=== PATIENT | female | born 1940 | race Caucasian/White ===

== ENCOUNTER 2022-01-17 17:10 | Inpatient (IN) ==
--- NOTE | 2022-01-17 17:19 | ED Triage Note ---
Date of Service January 17, 2022 History of Present Illness This patient was briefly evaluated while in triage. An abbreviated physical exam was performed. This patient is a 81-year-old Female with past medical history of colitis with concerns of L sided neck swelling. No fever. She had neck CT today, showing abscess. Physical Exam GENERAL: 81 year old female. In no acute distress. SKIN: No lesions or rashes. L sided facial edema and erythema noted. HEART: Regular rate and rhythm. LUNGS: Clear to auscultation. NEURO: Alert and oriented. No deficits. MUSCULOSKELETAL: No deformities to inspection of the extremities. PSYCH: Patient is pleasant and answers all questions appropriately. Initial orders for labs and / or imaging were placed and patient was placed in the waiting area until a bed is available. Please see further documentation for the full ED course.
[2022-01-17 17:44] LABS: Basophils # (auto) 0.15 K/uL (0-0.2); Basophils % (auto) 0.6 %; Eosinophils # (auto) 0.08 K/uL (0-0.50); Eosinophils % (auto) 0.3 %; Hematocrit (blood only) 34.2 % (34.1-44.9); Hemoglobin 11.2 g/dl (12.0-16.0); Immature Granulocytes # (auto) 0.72 K/uL (0.00-0.02); Lymphocytes # (auto) 2.04 K/uL (1.2-3.4); Lymphocytes % (auto) 8.6 %; Mean Corpuscular Hgb Conc 32.7 g/dL (32.0-36.0); Mean Platelet Volume 9.8 fL (9.4-12.3); Monocytes # (auto) 2.16 K/uL (0.24-0.82); Monocytes % (auto) 9.1 %; Neutrophils % (auto) 78.4 %; Platelet Count 181 K/uL (130-400); RDW Coefficient of Variation 16.7 % (11.5-14.5); RDW Standard Deviation 64.4 fL (36.4-46.3); Red Blood Count 3.29 M/uL (3.93-5.22); White Blood Count 23.85 K/ul (4.8-10.8)
[2022-01-17 18:14] LABS: Albumin Globulin Ratio 1.5 (0.9-2); Albumin Level 3.8 gm/dl (3.4-5.0); BUN Creatinine Ratio 15.7 (10-20); Bilirubin,Total 0.3 mg/dl (0.2-1.0); Calcium 8.2 mg/dl (8.5-10.1); Creatinine Clr Calc Pharmacy 45.6 ml/min; Est GFR (African American) 76.6 ml/min; Est GFR (Non-African American) 66.1 ml/min; Globulin 2.6 gm/dl (2.5-4.0); Potassium 3.4 mmol/L (3.5-5.1); Total Protein 6.4 gm/dl (6.0-8.3)
--- NOTE | 2022-01-17 18:52 | Emergency Department Note ---
History of Present Illness General Chief complaint: Throat Pain Stated complaint: ABCESS GLAND ON THROAT Time Seen by Provider: 01/17/22 18:39 History of Present Illness Maximum Pain Intensity: 8 This is an 81-year-old female that presents to the emergency department via private vehicle referred by PCP over concerns of left-sided neck swelling/infection. The patient was initially evaluated in triage. Labs were drawn. CT imaging was also reviewed that was obtained earlier today. This was of the neck. Patient notes that yesterday she noted some left-sided neck swelling. She notes it is tender to the touch. She denies any pain at rest without touching the area. She denies any fevers or chills. No trouble breathing or swallowing. Patient denies any recent antibiotic use. Patient notes a history of pancreatic cancer, currently undergoing treatment. Patient notes that she has had diarrhea recently secondary to this. Patient notes a history of penicillin allergy as a child but this did not cause anaphylaxis or oral swelling/breathing trouble. Home Medications Medication Instructions Recorded Confirmed Type ascorbic acid (vitamin C) 500 mg 500 mg PO DAILY #7 caps 05/11/21 01/17/22 Rx capsule aspirin 81 mg capsule 81 mg PO DAILY #30 caps 05/11/21 01/17/22 Rx cholecalciferol (vitamin D3) 50 50 mcg PO DAILY #30 caps 05/11/21 01/17/22 Rx mcg (2,000 unit) capsule cyanocobalamin (vitamin B-12) 1,000 mcg PO DAILY #30 caps 05/11/21 01/17/22 Rx 1,000 mcg capsule melatonin 10 mg capsule 10 mg PO HS PRN sleep #1 cap 05/11/21 01/17/22 Rx olmesartan 20 mg tablet 20 mg PO DAILY #30 tabs 05/11/21 01/17/22 Rx rosuvastatin 10 mg tablet 10 mg PO DAILY #30 tabs 05/11/21 01/17/22 Rx famotidine 20 mg tablet 20 mg PO BID #30 tabs 10/02/21 01/17/22 Rx ondansetron 4 mg disintegrating 4 mg PO Q8H PRN nausea and 10/17/21 01/17/22 Rx tablet vomiting #30 tabs biotin 1 mg capsule 1 mg PO DAILY 11/30/21 01/17/22 History loperamide 2 mg capsule 2 mg PO Q6H PRN Diarrhea 11/30/21 01/17/22 History lubiprostone 24 mcg capsule 24 mcg PO BID #180 caps 12/13/21 01/17/22 Rx (Amitiza) dicyclomine 10 mg capsule 10 mg PO QID PRN abdominal 12/18/21 01/17/22 Rx discomfort #60 caps balsalazide 750 mg capsule 2,250 mg PO TID #540 caps 01/11/22 01/17/22 Rx cyclosporine 0.05 % eye drops in a 1 drp OPB BID 01/17/22 01/17/22 History dropperette (Restasis) diphenoxylate-atropine 2.5 1 tab PO TID 01/17/22 01/17/22 History mg-0.025 mg tablet polyethylene glycol 3350 8.5 gram 8.5 g PO DAILY PRN Constipation 01/17/22 01/17/22 History oral powder packet potassium chloride 10 mEq 10 meq PO DAILY 01/17/22 01/17/22 History tablet,extended release Allergies Allergy/AdvReac Type Severity Reaction Status Date / Time Penicillins Allergy Intermediate swelling Verified 01/17/22 21:48 Past Med/Surg History Medical History (Updated 01/17/22 @ 19:49 by Piter Rhodes MD) COVID-19 Pancreatic cancer Ulcerative colitis Surgical History H/O bilateral cataract extraction H/O: hysterectomy 1990 Family History Mother Brain tumor Father Metastatic cancer Sister Ovarian cancer Denies family history of Prostate cancer Breast cancer Lung cancer Colorectal cancer Social History Smoking Status: Never smoker Second Hand Exposure: No; Hx Alcohol Use: No Hx Substance Use: No Preferred Language: Somali Communication Ability: Effective Visual Impairment: Limited Hearing Ability: Normal Hospice Care Sales Consultant Required: No marital status: / Current Living Situation: Personal Care Facility Current Living Situation Comment: lives in [place] current occupational status: retired Feels Safe at Home: Yes Childhood Exposure to Second-Hand Smoke: Yes caffeine: Yes Dental Care, Regularly: Yes Physical Activity Frequency: Does not Exercise Seatbelt Use: always Sunscreen Use: Yes Review of Systems A total of 10 systems reviewed and were otherwise negative Physical Exam Vital Signs Vital Signs - 24 hr 01/17/22 17:15 Temperature 36.9 C Temperature Source Temporal Artery Scan Pulse Rate 93 H Respiratory Rate 18 Respiratory Effort / Characteristics Non-Labored Respiratory Depth Normal Blood Pressure 142/69 H Blood Pressure Mean 93 Blood Pressure Position Sitting Pulse Oximetry 97 Oxygen Delivery Method Room Air Sepsis Recent Fever Within 48 Hours No Sepsis New/Unexplained Change in Mental Status No Sepsis Action Taken by Nursing No Action Required VITAL SIGNS - Vital signs and nursing notes were reviewed. Stable and afebrile. GENERAL - 81-year-old female appearing her stated age who is in no acute distress. Communicates well with provider and answers questions appropriately. SKIN -there is left-sided neck erythema and edema focal overlying the parotid gland that tracks into the submandibular/submental region with erythema. HEAD - NC/AT. EYES - Sclera anicteric. EARS - No deformities of external structures noted on gross examination bilaterally. No pain elicited with palpation of the tragus bilaterally. External auditory canals without discharge or otorrhea. Tympanic membranes pearly roe without retraction or bulging. No fluid or purulent material visualized behind the TM. Handle of malleus, umbo, cone of light, pars tensa/flaccid all easily visualized. NOSE - Midline and without cyanosis. No epistaxis or purulent drainage noted. MOUTH/OROPHARYNX - Without perioral cyanosis. Buccal mucosa pink and moist and without leukoplakia. Tongue midline with equal elevation of palate bilaterally. No tonsillar hypertrophy, erythema, or exudates noted. No drooling, stridor, trismus, wheezing or tripoding. Normal phonation. NECK - Neck with FROM. Skin as above. Left-sided neck edema noted that is focal just inferior to the left ear that tracks into the submandibular and submental regions. LUNGS - Chest wall symmetric without accessory muscle use, intercostals retractions, or central cyanosis. Normal vesicular breath sounds CTA B/L. No wheezes, rales, or rhonchi appreciated. CARDIAC - RRR EXTREMITIES - No clubbing or peripheral cyanosis. +5/5 strength noted in UE/LE bilaterally. NEUROLOGIC - Cranial nerves II through XII grossly intact. PSYCH - A&Ox3 and cooperates fully with examiner. Pt is very pleasant and interacts well with examiner. Course Administered Medications Famotidine (Famotidine 20 Mg Tab) 20 mg PO BID SKY Stop: 02/16/22 23:39 Last Admin: 01/18/22 00:14 Dose: 20 mg Documented By: KAREN Metronidazole (Flagyl) 500 mg in 100 mls @ 100 mls/hr IV Q8H SKY Stop: 01/27/22 22:59 Last Admin: 01/18/22 00:14 Dose: 100 mls/hr Documented By: KAREN Sodium Chloride (Nss 1000ml) 1,000 mls @ 125 mls/hr IV .Q8H SKY Stop: 01/18/22 15:44 Last Admin: 01/18/22 00:13 Dose: 125 mls/hr Documented By: KAREN Mercedes (Order Awaiting Action: Balsalazide 750 Mg Capsule) 1 each N/A QS SKY Stop: 02/17/22 00:00 Last Admin: 01/18/22 00:18 Dose: Not Given Documented By: KAREN Mercedes (Order Awaiting Action: Cyclosporine [Restasis] 0.05 % Dropperette) 1 each N/A QS SKY Stop: 02/17/22 00:00 Last Admin: 01/18/22 00:18 Dose: Not Given Documented By: KAREN Discontinued Medications Acetaminophen (Acetaminophen 500 Mg Tab) 500 mg PO NOW STA Stop: 01/17/22 19:24 Last Admin: 01/17/22 19:44 Dose: Not Given Documented By: SARAH Sodium Chloride (Nss) 500 mls @ 100 mls/hr IV .Q5H SKY Stop: 02/16/22 18:59 Last Admin: 01/17/22 19:29 Dose: 100 mls/hr Documented By: SARAH Ceftriaxone Sodium (Rocephin) 2,000 mg in 70 mls @ 140 mls/hr IV NOW STA Stop: 01/17/22 19:30 Last Infusion: 01/17/22 20:34 Dose: 0 mls/hr Documented By: Admin: 01/17/22 19:36 Dose: 140 mls/hr Documented By: SARAH Methylprednisolone 100 mg/ (Syringe) 2.6 mls @ 1.5 mls/min IV NOW STA Stop: 01/17/22 19:04 Last Admin: 01/17/22 19:31 Dose: 1.5 mls/min Documented By: SARAH Sodium Chloride (Nss 1000ml) 1,000 mls @ 999 mls/hr IV .Q1H1M ONE Stop: 01/17/22 20:34 Last Infusion: 01/17/22 20:34 Dose: 0 mls/hr Documented By: Admin: 01/17/22 19:37 Dose: 999 mls/hr Documented By: SARAH Methylprednisolone (Methylprednisolone 125 Mg/2 Ml Vial) Confirm Administered Dose 125 mg .ROUTE .STK-MED ONE Stop: 01/17/22 19:09 Last Admin: 01/17/22 19:30 Dose: Not Given Documented By: SARAH Medical Decision Making Laboratory Data Result diagrams: 01/17/22 17:29 01/17/22 17:29 Lab Results 01/17/22 01/17/22 01/17/22 Range/Units 17:29 17:29 17:29 WBC 23.85 H (4.8-10.8) K/ul RBC 3.29 L (3.93-5.22) M/uL Hgb 11.2 L (12.0-16.0) g/dl Hct 34.2 (34.1-44.9) % MCV 104.0 H (80.0-100.0) fL MCH 34.0 (25.0-34.0) pg MCHC 32.7 (32.0-36.0) g/dL RDW Std Deviation 64.4 H (36.4-46.3) fL RDW Coeff of Venessa 16.7 H (11.5-14.5) % Plt Count 181 (130-400) K/uL MPV 9.8 (9.4-12.3) fL Immature Gran % (Auto) 3.0 % Neut % (Auto) 78.4 % Lymph % (Auto) 8.6 % [place] % (Auto) 9.1 % Eos % (Auto) 0.3 % Baso % (Auto) 0.6 % Neut # (Auto) 18.70 H (1.4-6.5) K/uL Lymph # (Auto) 2.04 (1.2-3.4) K/uL [place] # (Auto) 2.16 H (0.24-0.82) K/uL Eos # (Auto) 0.08 (0-0.50) K/uL Baso # (Auto) 0.15 (0-0.2) K/uL Immature Gran # (Auto) 0.72 H (0.00-0.02) K/uL Sodium (136-145) mmol/L Potassium (3.5-5.1) mmol/L Chloride (98-107) mmol/L Carbon Dioxide (21-32) mmol/L Anion Gap (3-11) BUN (6-23) mg/dl Creatinine (0.6-1.2) mg/dl Est Cr Clr Drug Dosing ml/min Est GFR ( Amer) ml/min Est GFR (Non-Af Amer) ml/min BUN/Creatinine Ratio (10-20) Glucose (70-99(Fasting)) mg/dl Lactate 1.0 (0.4-2.0) mmol/L Calcium (8.5-10.1) mg/dl Total Bilirubin (0.2-1.0) mg/dl AST (13-39) U/L ALT (7-52) U/L Alkaline Phosphatase (34-104) U/L Total Protein (6.0-8.3) gm/dl Albumin (3.4-5.0) gm/dl Globulin (2.5-4.0) gm/dl Albumin/Globulin Ratio (0.9-2) Procalcitonin 0.51 H (0-0.5) ng/ml SARS-CoV-2, RNA, NAAT (NEGATIVE) 01/17/22 01/17/22 Range/Units 17:29 17:29 WBC (4.8-10.8) K/ul RBC (3.93-5.22) M/uL Hgb (12.0-16.0) g/dl Hct (34.1-44.9) % MCV (80.0-100.0) fL MCH (25.0-34.0) pg MCHC (32.0-36.0) g/dL RDW Std Deviation (36.4-46.3) fL RDW Coeff of Venessa (11.5-14.5) % Plt Count (130-400) K/uL MPV (9.4-12.3) fL Immature Gran % (Auto) % Neut % (Auto) % Lymph % (Auto) % [place] % (Auto) % Eos % (Auto) % Baso % (Auto) % Neut # (Auto) (1.4-6.5) K/uL Lymph # (Auto) (1.2-3.4) K/uL [place] # (Auto) (0.24-0.82) K/uL Eos # (Auto) (0-0.50) K/uL Baso # (Auto) (0-0.2) K/uL Immature Gran # (Auto) (0.00-0.02) K/uL Sodium 136 (136-145) mmol/L Potassium 3.4 L (3.5-5.1) mmol/L Chloride 103 (98-107) mmol/L Carbon Dioxide 24 (21-32) mmol/L Anion Gap 9 (3-11) BUN 13 (6-23) mg/dl Creatinine 0.83 (0.6-1.2) mg/dl Est Cr Clr Drug Dosing 45.6 ml/min Est GFR ( Amer) 76.6 ml/min Est GFR (Non-Af Amer) 66.1 ml/min BUN/Creatinine Ratio 15.7 (10-20) Glucose 101 H (70-99(Fasting)) mg/dl Lactate (0.4-2.0) mmol/L Calcium 8.2 L (8.5-10.1) mg/dl Total Bilirubin 0.3 (0.2-1.0) mg/dl AST 16 (13-39) U/L ALT 7 (7-52) U/L Alkaline Phosphatase 139 H (34-104) U/L Total Protein 6.4 (6.0-8.3) gm/dl Albumin 3.8 (3.4-5.0) gm/dl Globulin 2.6 (2.5-4.0) gm/dl Albumin/Globulin Ratio 1.5 (0.9-2) Procalcitonin (0-0.5) ng/ml SARS-CoV-2, RNA, NAAT NEGATIVE (NEGATIVE) Imaging Data Radiologist's Impression: ORDERED OUT PATIENT: CT soft tissue neck w con CLINICAL HISTORY: R22.1 - Localized swelling, mass and lump, neck . Pain and swelling of the left side of the face.. COMPARISON STUDY: No previous studies for comparison. CT DOSE: 378.01 mGy.cm TECHNIQUE: Standard CT of the Neck was performed with IV contrast. A dose lowering technique was utilized adhering to the principles of ALARA. Contrast Volume: Optiray 320, 94 ml FINDINGS: Salivary glands: There is localized swelling of the left parotid gland with an enhancing walled off fluid collection seen within the gland measuring approximately 2.1 x 1.6 cm. This is most characteristic of a small abscess. Edema is present of the soft tissues surrounding the left parotid gland as well. The right parotid gland is within normal limits. The submandibular glands are also symmetric and within normal limits. The thyroid gland is also within normal limits. Lymph nodes: There are minimal reactive lymph nodes seen along the cervical lymph node chain on the left. There is no evidence for soft tissue mass within the neck bilaterally. Airway: The cervical airway is widely patent. The epiglottis and aryepiglottic folds are normal bilaterally. The vocal cords are symmetric bilaterally. Vascular structures: No gross vascular abnormalities are seen. Paranasal sinuses: The imaged paranasal sinuses are clear. Osseous structures: No acute osseous abnormalities are identified. Degenerative changes are seen within the spine. Teeth: There is no definite evidence for dental abscess. IMPRESSION: 1. Asymmetric swelling of the left parotid gland with a enhancing walled off fluid collection within the gland most characteristic of an abscess. 2. Mild soft tissue swelling is also seen within the left side of face. 3. There is also minimal reactive lymphadenopathy along the cervical lymph node chain on the left. This report will be called/faxed to the referring clinician. ACT 112: Negative or not required by law. Electronically signed by: Sanjay Mcwilliams M.D. 01/17/2022 1:42 PM [facility] Narrative Patient was seen and evaluated as above in room A02. Review was performed of nursing notes and vital signs. I did review pertinent previous visits and patient history. After obtaining a thorough history and physical examination the above work up was performed. Patient presents to us today for evaluation of left-sided neck pain and swelling. She clinically appears well and nontoxic. No evidence of airway compromise. Patient had the CT scan of the neck performed as an outpatient earlier today. Patient was then directed here after the results were obtained. On arrival the patient does have erythema and edema to the left side of the neck just inferior to the left ear region. This is likely parotid in origin but also with edema and erythema tracking to the submandibular and submental region. Options of care were discussed with the patient. She clinically appears very well. Labs reveal significant leukocytosis 23.85. Anemia is noted with hemoglobin of 11.2. Hypokalemia 3.4. Pro-Elroy elevated at 0.51. COVID test negative. I discussed the presentation with the attending physician as well as the on-call ENT surgeon, Dr. Dangelo. We reviewed the presentation and findings. Recommendation was for IV antibiotics such as IV Rocephin, 100 mg of IV Solu- Medrol, IV hydration. At this time patient is not felt to be surgical upon discussion of case with ENT. Patient will be admitted to the medicine service for further evaluation and management. I do not believe that she requires intubation or airway management at the present time. I discussed benefit versus risk of the cephalosporin antibiotic with the patient. At this time it is felt that the benefit outweighs the risk. Patient in agreement. I then discussed the case with the hospitalist. Please refer to further documentation regarding h er stay. In the evaluation and treatment of this patient the following differential diagnoses were entertained: Strep pharyngitis, viral pharyngitis, allergic rhinitis with post nasal drip, airway obstruction, head/neck neoplasias, GERD, peritonisllar abscess, epiglottitis, [id number]-[id number]-mouth disease, herpes simplex, mononucleosis, pneumonia, retropharyngeal abscess, scarlet fever, among others. Impression & Plan Neck infection Discharge Plan Visit Data Chief Complaint: Throat Pain Stated Complaint: ABCESS GLAND ON THROAT ED Provider: [facility] ED Midlevel Provider: Henry Chaudhary Discharge Problem: Neck infection Patient Disposition: Admitted As Inpatient Condition: Good Discharge Instructions Interventions: ED Discharge Assessment Last Done: 01/17/22 21:35
[2022-01-17] MEDS ORDERED: SODIUM CHLORIDE 0.9% 500 ML IV SCH (19:00)
[2022-01-17] MEDS ORDERED: cefTRIAXone SODIUM 2,000 MG/70 ML BAG IV STA (19:01)
[2022-01-17] MEDS ORDERED: METHYLPREDNISOLONE IV STA (19:03)
[2022-01-17] MEDS ORDERED: methylPREDNISolone 125 MG/2 ML VIAL ONE (19:08)
[2022-01-17] MEDS ORDERED: ACETAMINOPHEN 500 MG TAB PO STA (19:23)
[2022-01-17] MEDS ORDERED: SODIUM CHLORIDE 0.9% 1000ML 1,000 ML IV ONE (19:34)
--- NOTE | 2022-01-17 19:36 | History & Physical Report ---
Date of Service January 17, 2022 Assessment & Plan (1) Parotid abscess: Plan: Continue IV ceftriaxone and metronidazole. 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 - last had chemotherapy January 02 (5) Vitamin B12 deficiency: Plan: Continue cyanocobalamin (6) Vitamin D deficiency: Plan: Continue vitamin D supplementation (7) Hypertension: Plan: Continue olmesartan 20mg PO daily (8) Hyperlipidemia: Plan: Continue rosuvastatin 10mg PO daily Plan VTE Prophyalxis - deferred pending surgical consult Diet - NPO except ice chips and meds Disposition - observation status to med/surg History of Present Illness Chief Complaint: Left facial swelling Primary Care Provider: Alfredo Hernandez DO Gaye Imelda is an 81 year old female who presents to the ER with left facial swelling. She reports first noticing pain on the left side of her face while sleeping last night. This morning it was more swollen and painful. Saw her PA in PCP office and organized a CT neck soft tissue which showed a parotid abscess and she was referred to the ER. No fever or chills. No difficulty breathing but pain on trying to open her mouth. She reports increased diarrhea with her latest chemotherapy which has been making her more dehydrated than usual. She reports a penicillin allergy that she reports was a rash in childhood. Allergies Allergy/AdvReac Type Severity Reaction Status Date / Time Penicillins Allergy Intermediate swelling Verified 01/17/22 21:48 Home Medications Medication Instructions Recorded Confirmed Type ascorbic acid (vitamin C) 500 mg 500 mg PO DAILY #7 caps 05/11/21 01/17/22 Rx capsule aspirin 81 mg capsule 81 mg PO DAILY #30 caps 05/11/21 01/17/22 Rx cholecalciferol (vitamin D3) 50 50 mcg PO DAILY #30 caps 05/11/21 01/17/22 Rx mcg (2,000 unit) capsule cyanocobalamin (vitamin B-12) 1,000 mcg PO DAILY #30 caps 05/11/21 01/17/22 Rx 1,000 mcg capsule melatonin 10 mg capsule 10 mg PO HS PRN sleep #1 cap 05/11/21 01/17/22 Rx olmesartan 20 mg tablet 20 mg PO DAILY #30 tabs 05/11/21 01/17/22 Rx rosuvastatin 10 mg tablet 10 mg PO DAILY #30 tabs 05/11/21 01/17/22 Rx famotidine 20 mg tablet 20 mg PO BID #30 tabs 10/02/21 01/17/22 Rx ondansetron 4 mg disintegrating 4 mg PO Q8H PRN nausea and 10/17/21 01/17/22 Rx tablet vomiting #30 tabs biotin 1 mg capsule 1 mg PO DAILY 11/30/21 01/17/22 History loperamide 2 mg capsule 2 mg PO Q6H PRN Diarrhea 11/30/21 01/17/22 History lubiprostone 24 mcg capsule 24 mcg PO BID #180 caps 12/13/21 01/17/22 Rx (Amitiza) dicyclomine 10 mg capsule 10 mg PO QID PRN abdominal 12/18/21 01/17/22 Rx discomfort #60 caps balsalazide 750 mg capsule 2,250 mg PO TID #540 caps 01/11/22 01/17/22 Rx cyclosporine 0.05 % eye drops in a 1 drp OPB BID 01/17/22 01/17/22 History dropperette (Restasis) diphenoxylate-atropine 2.5 1 tab PO TID 01/17/22 01/17/22 History mg-0.025 mg tablet polyethylene glycol 3350 8.5 gram 8.5 g PO DAILY PRN Constipation 01/17/22 01/17/22 History oral powder packet potassium chloride 10 mEq 10 meq PO DAILY 01/17/22 01/17/22 History tablet,extended release Past Med/Surg History Medical History (Updated 01/18/22 @ 07:13 by Piter Rhodes MD) COVID-19 Pancreatic cancer Ulcerative colitis Surgical History H/O bilateral cataract extraction H/O: hysterectomy 1990 Family History Mother Brain tumor Father Metastatic cancer Sister Ovarian cancer Denies family history of Prostate cancer Breast cancer Lung cancer Colorectal cancer Social History Smoking Status: Never smoker Second Hand Exposure: No; Do You Dip or Chew Tobacco: No; Tobacco Cessation Education Requested by Patient: No Hx Alcohol Use: Yes Alcohol type: wine Hx Substance Use: No Preferred Language: Tajik Communication Ability: Effective Visual Impairment: Limited Hearing Ability: Normal Bronc Breaker Required: No Beliefs That Will Affect Care: None marital status: / Current Living Situation: Alone Current Living Situation Comment: lives in [place] current occupational status: retired Other Information That Helps Us Care for You: No Feels Safe at Home: Yes Safety Concerns: Feels Safe At This Time Childhood Exposure to Second-Hand Smoke: Yes caffeine: Yes Dental Care, Regularly: Yes Physical Activity Frequency: Does not Exercise Seatbelt Use: always Sunscreen Use: Yes Assistive Devices: None Review of Systems Review of Systems: Diarrhea increasing the last week. Having problems ever since she went on chemotherapy. Physical Exam Constitutional: WD/WN, vitals as above no acute distress Eyes: PERRL, conjunctivae normal, anicteric sclerae ENMT: Mouth: + dry oral mucous membranes and + dental caries (left back molar without gingivitis) Neck: erythema and swelling over left side of her neck from chin to neck Respiratory: normal respiratory effort, lungs clear to auscultation Cardiovascular: RRR, no murmur, no edema Gastrointestinal (Abdomen): normal bowel sounds, soft, nontender, no hepatosplenomegaly Musculoskeletal: no cyanosis or clubbing, extremities motor strength 5/5 Neurologic: moves all extremities and awake; not confused Psychiatric: A+Ox3, euthymic affect Results & Data Results & Data ([facility]) Vital Signs (Past 12 Hours) Vital Signs Temp Pulse Resp BP Pulse Ox O2 Del Method 01/17/22 17:15 36.9 C 93 H 18 142/69 H 97 Room Air Diagnostic Findings CT soft tissue neck w con CLINICAL HISTORY: R22.1 - Localized swelling, mass and lump, neck . Pain and swelling of the left side of the face.. COMPARISON STUDY: No previous studies for comparison. CT DOSE: 378.01 mGy.cm TECHNIQUE: Standard CT of the Neck was performed with IV contrast. A dose lowering technique was utilized adhering to the principles of ALARA. Contrast Volume: Optiray 320, 94 ml FINDINGS: Salivary glands: There is localized swelling of the left parotid gland with an enhancing walled off fluid collection seen within the gland measuring approximately 2.1 x 1.6 cm. This is most characteristic of a small abscess. Edema is present of the soft tissues surrounding the left parotid gland as well. The right parotid gland is within normal limits. The submandibular glands are also symmetric and within normal limits. The thyroid gland is also within normal limits. Lymph nodes: There are minimal reactive lymph nodes seen along the cervical lymph node chain on the left. There is no evidence for soft tissue mass within the neck bilaterally. Airway: The cervical airway is widely patent. The epiglottis and aryepiglottic folds are normal bilaterally. The vocal cords are symmetric bilaterally. Vascular structures: No gross vascular abnormalities are seen. Paranasal sinuses: The imaged paranasal sinuses are clear. Osseous structures: No acute osseous abnormalities are identified. Degenerative changes are seen within the spine. Teeth: There is no definite evidence for dental abscess. IMPRESSION: 1. Asymmetric swelling of the left parotid gland with a enhancing walled off fluid collection within the gland most characteristic of an abscess. 2. Mild soft tissue swelling is also seen within the left side of face. 3. There is also minimal reactive lymphadenopathy along the cervical lymph node chain on the left. Medications Administered ER Medications Given: NSS 500 ml bolus Ceftriaxone 2g IV Solu-Medrol 100mg Code Status & VTE Plan Code Status Full VTE Prophylaxis Plan VTE Prophylaxis will be ordered: No PG Care Time/CCT Total # of Minutes Spent Total Time Spent with Patient: Total time spent is greater than 50% in coordination of care (as documented) at patient's floor/unit and/or counseling patient: Coding Level of Care Code INT OBSERVATION CARE 50M LVL 2 Diagnoses Parotid abscess K11.3 Penicillin allergy Z88.0 Ulcerative colitis K51.90 Pancreatic cancer C25.9 Vitamin B12 deficiency E53.8 Vitamin D deficiency E55.9 Hypertension I10 Hyperlipidemia E78.5
[2022-01-17] MEDS ORDERED: MoRPHine SULFATE 4 MG/ML 1 ML CARP\\VIAL IV PRN (22:35)
[2022-01-17] MEDS ORDERED: MoRPHine SULFATE 2 MG/ML CARP IV PRN (22:35)
[2022-01-17] MEDS ORDERED: ACETAMINOPHEN 1,000 MG/100 ML VIAL IV PRN (22:35)
[2022-01-17] MEDS ORDERED: MELATONIN 3 MG TAB PO PRN (23:37)
[2022-01-17] MEDS ORDERED: DICYCLOMINE HCL 10 MG CAP PO PRN (23:37)
[2022-01-17] MEDS ORDERED: LOPERAMIDE HCL 2 MG CAP PO PRN (23:37)
[2022-01-18] MEDS: SODIUM CHLORIDE 0.9% 1000ML 1,000 ML IV SCH ×2 (00:13→07:52)
[2022-01-18] MEDS: FAMOTIDINE 20 MG TAB PO SCH ×3 (00:14→20:47)
[2022-01-18] MEDS: metroNIDAZOLE 500 MG/100 ML BAG IV SCH ×4 (00:14→23:27)
[2022-01-18] MEDS: methylPREDNISolone 40 MG in SYRINGE 0 ML IV SCH ×2 (01:50→07:52)
[2022-01-18 06:35] LABS: Hematocrit (blood only) 29.7 % (34.1-44.9); Hemoglobin 9.9 g/dl (12.0-16.0); Mean Corpuscular Hemoglobin 34.4 pg (25.0-34.0); Mean Corpuscular Hgb Conc 33.3 g/dL (32.0-36.0); Mean Corpuscular Volume 103.1 fL (80.0-100.0); Mean Platelet Volume 10.2 fL (9.4-12.3); Platelet Count 161 K/uL (130-400); RDW Coefficient of Variation 16.3 % (11.5-14.5); RDW Standard Deviation 61.8 fL (36.4-46.3); Red Blood Count 2.88 M/uL (3.93-5.22); White Blood Count 17.59 K/ul (4.8-10.8)
[2022-01-18 06:57] LABS: BUN Creatinine Ratio 16.7 (10-20); Calcium 7.8 mg/dl (8.5-10.1); Creatinine Clr Calc Pharmacy 48.5 ml/min; Est GFR (Non-African American) 78.5 ml/min; Potassium 3.8 mmol/L (3.5-5.1)
[2022-01-18 07:16] LABS: Basophils # (auto) 0.08 K/uL (0-0.2); Basophils % (auto) 0.5 %; Immature Granulocytes # (auto) 0.66 K/uL (0.00-0.02); Immature Granulocytes % (auto) 3.8 %; Lymphocytes % (auto) 5.1 %; Macrocytosis Present; Monocytes # (auto) 0.26 K/uL (0.24-0.82); Monocytes % (auto) 1.5 %; Neutrophils # (auto) 15.69 K/uL (1.4-6.5); Neutrophils % (auto) 89.1 %; Ovalocytes 1+; Polychromasia 1+
--- NOTE | 2022-01-18 08:17 | ENT Consultation ---
Date of Consultation January 18, 2022 Assessment & Plan (1) Parotitis, acute: She has responded well overnight to IV fluids and antibiotics. Resume diet. No surgical intervention contemplated. (2) Submandibular sialoadenitis: History of Present Illness Reason for Consultation: Left parotid and submandibular swelling Attending Physician: Nubia Puentes MD History of Present Illness 81-year-old with acute onset of left parotid and submandibular swelling Allergies Allergy/AdvReac Type Severity Reaction Status Date / Time Penicillins Allergy Intermediate swelling Verified 01/17/22 21:48 Home Medications Medication Instructions Recorded Confirmed Type ascorbic acid (vitamin C) 500 mg 500 mg PO DAILY #7 caps 05/11/21 01/17/22 Rx capsule aspirin 81 mg capsule 81 mg PO DAILY #30 caps 05/11/21 01/17/22 Rx cholecalciferol (vitamin D3) 50 50 mcg PO DAILY #30 caps 05/11/21 01/17/22 Rx mcg (2,000 unit) capsule cyanocobalamin (vitamin B-12) 1,000 mcg PO DAILY #30 caps 05/11/21 01/17/22 Rx 1,000 mcg capsule melatonin 10 mg capsule 10 mg PO HS PRN sleep #1 cap 05/11/21 01/17/22 Rx olmesartan 20 mg tablet 20 mg PO DAILY #30 tabs 05/11/21 01/17/22 Rx rosuvastatin 10 mg tablet 10 mg PO DAILY #30 tabs 05/11/21 01/17/22 Rx famotidine 20 mg tablet 20 mg PO BID #30 tabs 10/02/21 01/17/22 Rx ondansetron 4 mg disintegrating 4 mg PO Q8H PRN nausea and 10/17/21 01/17/22 Rx tablet vomiting #30 tabs biotin 1 mg capsule 1 mg PO DAILY 11/30/21 01/17/22 History loperamide 2 mg capsule 2 mg PO Q6H PRN Diarrhea 11/30/21 01/17/22 History lubiprostone 24 mcg capsule 24 mcg PO BID #180 caps 12/13/21 01/17/22 Rx (Amitiza) dicyclomine 10 mg capsule 10 mg PO QID PRN abdominal 12/18/21 01/17/22 Rx discomfort #60 caps balsalazide 750 mg capsule 2,250 mg PO TID #540 caps 01/11/22 01/17/22 Rx cyclosporine 0.05 % eye drops in a 1 drp OPB BID 01/17/22 01/17/22 History dropperette (Restasis) diphenoxylate-atropine 2.5 1 tab PO TID 01/17/22 01/17/22 History mg-0.025 mg tablet polyethylene glycol 3350 8.5 gram 8.5 g PO DAILY PRN Constipation 01/17/22 01/17/22 History oral powder packet potassium chloride 10 mEq 10 meq PO DAILY 01/17/22 01/17/22 History tablet,extended release Patient History Medical History COVID-19 Pancreatic cancer Ulcerative colitis Surgical History H/O bilateral cataract extraction H/O: hysterectomy 1990 Family History Mother Brain tumor Father Metastatic cancer Sister Ovarian cancer Denies family history of Prostate cancer Breast cancer Lung cancer Colorectal cancer Social History Smoking Status: Never smoker Second Hand Exposure: No; Do You Dip or Chew Tobacco: No; Tobacco Cessation Education Requested by Patient: No Hx Alcohol Use: Yes Alcohol type: wine Hx Substance Use: No Preferred Language: Kyrgyz Communication Ability: Effective Visual Impairment: Limited Hearing Ability: Normal Exercise Planner Required: No Beliefs That Will Affect Care: None marital status: / Current Living Situation: Alone Current Living Situation Comment: lives in [place] current occupational status: retired Other Information That Helps Us Care for You: No Feels Safe at Home: Yes Safety Concerns: Feels Safe At This Time Childhood Exposure to Second-Hand Smoke: Yes caffeine: Yes Dental Care, Regularly: Yes Physical Activity Frequency: Does not Exercise Seatbelt Use: always Sunscreen Use: Yes Assistive Devices: None Physical Exam Constitutional: WD/WN, vitals as above Eyes: PERRL, conjunctivae normal, anicteric sclerae ENMT: external ear and nose normal, oropharynx normal Neck: The parotid area with soft doughy swelling, submandibular area with 3 cm swelling, no sign of abscess, left neck Results & Data ([facility]) Vital Signs (Past 12 Hours) Vital Signs Temp Pulse Resp BP Pulse Ox O2 Del Method O2 Flow Rate 01/17/22 21:50 36.9 C 79 16 119/72 95 Room Air 01/17/22 21:09 73 18 125/76 95 Nasal Cannula 2
[2022-01-18] MEDS ORDERED: NON-FORMULARY MEDICATION (Biotin 1 mg capsule) PO SCH (09:00)
[2022-01-18] MEDS: POTASSIUM CHLORIDE CRTAB 20 MEQ TABCR PO SCH (09:08)
[2022-01-18] MEDS: DIPHENOXYLATE/ATROPINE 2.5/0.025MG TAB PO SCH ×3 (09:08→20:49)
[2022-01-18] MEDS: OLMESARTAN MEDOXOMIL 20 MG TAB PO SCH (09:08)
[2022-01-18] MEDS: ROSUVASTATIN CALCIUM 10 MG TAB PO SCH (09:08)
[2022-01-18] MEDS: CHOLECALCIFEROL 1,000 UNITS 25 MCG TAB PO SCH (09:08)
[2022-01-18] MEDS: CYANOCOBALAMIN (B-12) 500 MCG TABLET PO SCH (09:08)
[2022-01-18] MEDS: ASPIRIN 81 MG ECTAB PO SCH (09:08)
[2022-01-18] MEDS ORDERED: ENOXAPARIN INJ 40 MG/0.4 ML SYR SQ SCH (13:00)
[2022-01-18] MEDS ORDERED: HEPARIN 100 UNIT/ML 5ML FLUSH FLUSH PRN (16:51)
--- NOTE | 2022-01-18 16:51 | Hospitalist Progress Note ---
Date of Service January 18, 2022 Assessment & Plan (1) Parotid abscess: Plan: Presents with 2 days of worsening swelling in the left submandibular region with sweats and chills at home but no documented fevers. Presented with leukocytosis, and CT soft tissues of the neck showed left parotid fluid collection consistent with abscess measuring 2.1 x 1.6 cm Now significantly improved after less than 24 hours of IV ceftriaxone and Flagyl as well as IV steroids WBC count initially 23, now down to 17 Vitals are stable Seen by ENT who recommends no surgical intervention -Continue IV ceftriaxone and metronidazole for now I will plan to discharge on p.o. clindamycin to finish out a 7-day course. -Can discontinue IV steroids and discontinue IV fluids after second liter completed Advised biting lemon wedges or using lemon juice to help relieve any possible blocked salivary duct (2) Submandibular sialoadenitis: Plan: As above (3) Anemia: Plan: Hemoglobin 9.9 down from 11.2 on admission No evidence of bleeding this is likely hemodilution all She is also currently undergoing active chemotherapy for her pancreatic cancer and this is likely secondary to antineoplastic effect Follow CBC in the morning (4) Ulcerative colitis: Plan: Increased diarrhea likely as a result of chemotherapy rather than UC flare Continue her usual home meds with balsalazide 2250mg PO TID Follow-up with GI (5) Pancreatic cancer: Plan: 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 - last had chemotherapy January 02 Follow-up with oncology (6) Vitamin B12 deficiency: Plan: Continue cyanocobalamin (7) Vitamin D deficiency: Plan: Continue vitamin D supplementation (8) Hypertension: Plan: Continue olmesartan 20mg PO daily (9) Hyperlipidemia: Plan: Continue rosuvastatin 10mg PO daily (10) Penicillin allergy: Plan: Highly recommend outpatient allergy testing to see if this is a true allergy Plan VTE Prophyalxis - Added Lovenox as she is high risk for VTE given underlying cancer Diet -advance diet to regular Disposition - continued stay, discharge tomorrow Admission and Anticipated Discharge Date Admission Date: January 18, 2022 Subjective Patient reports feeling much better today. Much less swelling in the left side of her neck and is able to eat and swallow. Her diet was advanced throughout the day and I went back to check on her at dinnertime and she was feeling well enough for discharge but did not have a ride home. She denies any headache or lightheadedness, no chest pains or shortness of breath, no abdominal pains or nausea. In fact, her usual diarrhea had slowed way down. Review of Systems Review of Systems: All systems reviewed & are unremarkable except as noted in HPI & below Physical Exam Constitutional: WD/WN, vitals as above Eyes: + anicteric sclerae ENMT: external ear and nose normal, oropharynx normal Neck: trachea midline, no thyromegaly + submandibular swelling; + abnormal visual inspection (Swelling left submandibular region), no neck crepitus and no nuchal rigidity Positive approximately 2 cm fluctuant mass noted in left submandibular region that was tender to palpation, no erythema overlying this or the neck or face Respiratory: normal respiratory effort, lungs clear to auscultation Cardiovascular: RRR, no murmur, no edema Chest (Breasts): Chest: normal inspection of chest Gastrointestinal (Abdomen): normal bowel sounds, soft, nontender, no hepatosplenomegaly Musculoskeletal: Extremities: extremities normal to inspection; no cyanosis and no clubbing Skin: no rashes, warm and dry Neurologic: moves all extremities and awake; no focal motor deficits Psychiatric: A+Ox3, euthymic affect Lymphatic: no lymphedema Results & Data Results & Data ([facility]) Vital Signs (Past 12 Hours) Vital Signs Temp Pulse Resp BP Pulse Ox O2 Del Method 01/18/22 15:55 36.8 C 72 16 121/61 94 Room Air 01/18/22 09:10 72 01/18/22 08:14 36.6 C 58 L 16 130/66 95 Room Air Laboratory Results 01/18/22 01/18/22 Range/Units 06:00 06:00 WBC 17.59 H (4.8-10.8) K/ul RBC 2.88 L (3.93-5.22) M/uL Hgb 9.9 L (12.0-16.0) g/dl Hct 29.7 L (34.1-44.9) % MCV 103.1 H (80.0-100.0) fL MCH 34.4 H (25.0-34.0) pg MCHC 33.3 (32.0-36.0) g/dL RDW Std Deviation 61.8 H (36.4-46.3) fL RDW Coeff of Venessa 16.3 H (11.5-14.5) % Plt Count 161 (130-400) K/uL MPV 10.2 (9.4-12.3) fL Immature Gran % (Auto) 3.8 % Neut % (Auto) 89.1 % Lymph % (Auto) 5.1 % Haakon % (Auto) 1.5 % Eos % (Auto) 0.0 % Baso % (Auto) 0.5 % Neut # (Auto) 15.69 H (1.4-6.5) K/uL Lymph # (Auto) 0.90 L (1.2-3.4) K/uL Haakon # (Auto) 0.26 (0.24-0.82) K/uL Eos # (Auto) 0.00 (0-0.50) K/uL Baso # (Auto) 0.08 (0-0.2) K/uL Immature Gran # (Auto) 0.66 H (0.00-0.02) K/uL Polychromasia 1+ Macrocytosis Present Ovalocytes 1+ Sodium 140 (136-145) mmol/L Potassium 3.8 (3.5-5.1) mmol/L Chloride 110 H (98-107) mmol/L Carbon Dioxide 24 (21-32) mmol/L Anion Gap 6 (3-11) BUN 12 (6-23) mg/dl Creatinine 0.72 (0.6-1.2) mg/dl Est Cr Clr Drug Dosing 48.5 ml/min Est GFR ( Amer) 91.0 ml/min Est GFR (Non-Af Amer) 78.5 ml/min BUN/Creatinine Ratio 16.7 (10-20) Glucose 160 H (70-99(Fasting)) mg/dl Calcium 7.8 L (8.5-10.1) mg/dl PG Care Time/CCT Total # of Minutes Spent Total Time Spent with Patient: Total time spent is greater than 50% in coordination of care (as documented) at patient's floor/unit and/or counseling patient: Coding Level of Care Code 40589 Subseq Hosp Care Lvl 2 Diagnoses Parotid abscess K11.3 Submandibular sialoadenitis K11.20 Anemia D64.9 Ulcerative colitis K51.90 Pancreatic cancer C25.9 Vitamin B12 deficiency E53.8 Vitamin D deficiency E55.9 Hypertension I10 Hyperlipidemia E78.5 Penicillin allergy Z88.0
[2022-01-18] MEDS ORDERED: cefTRIAXone SODIUM 2,000 MG in DEXTROSE 5% 50 ML IV SCH (21:00)
[2022-01-19] MEDS: CYANOCOBALAMIN (B-12) 500 MCG TABLET PO SCH (08:44)
[2022-01-19] MEDS: metroNIDAZOLE 500 MG/100 ML BAG IV SCH (08:44)
[2022-01-19] MEDS: CHOLECALCIFEROL 1,000 UNITS 25 MCG TAB PO SCH (08:44)
[2022-01-19] MEDS: ASPIRIN 81 MG ECTAB PO SCH (08:44)
[2022-01-19] MEDS: ROSUVASTATIN CALCIUM 10 MG TAB PO SCH (08:45)
[2022-01-19] MEDS: DIPHENOXYLATE/ATROPINE 2.5/0.025MG TAB PO SCH (08:45)
[2022-01-19] MEDS: FAMOTIDINE 20 MG TAB PO SCH (08:45)
[2022-01-19] MEDS: OLMESARTAN MEDOXOMIL 20 MG TAB PO SCH (08:45)
[2022-01-19] MEDS: POTASSIUM CHLORIDE CRTAB 20 MEQ TABCR PO SCH (08:45)
[2022-01-19 08:55] LABS: BUN Creatinine Ratio 19.8 (10-20); Calcium 7.9 mg/dl (8.5-10.1); Creatinine Clr Calc Pharmacy 43.1 ml/min; Est GFR (African American) 78.9 ml/min; Est GFR (Non-African American) 68.1 ml/min; Potassium 3.8 mmol/L (3.5-5.1)
[2022-01-19 09:02] LABS: Hematocrit (blood only) 28.4 % (34.1-44.9); Hemoglobin 9.6 g/dl (12.0-16.0); Mean Corpuscular Hgb Conc 33.8 g/dL (32.0-36.0); Mean Corpuscular Volume 100.7 fL (80.0-100.0); Mean Platelet Volume 9.9 fL (9.4-12.3); Platelet Count 178 K/uL (130-400); RDW Coefficient of Variation 16.6 % (11.5-14.5); RDW Standard Deviation 60.8 fL (36.4-46.3); Red Blood Count 2.82 M/uL (3.93-5.22); White Blood Count 26.53 K/ul (4.8-10.8)
[2022-01-19 09:21] LABS: Basophils # (auto) 0.08 K/uL (0-0.2); Basophils % (auto) 0.3 %; Eosinophils # (auto) 0.01 K/uL (0-0.50); Immature Granulocytes # (auto) 0.85 K/uL (0.00-0.02); Immature Granulocytes % (auto) 3.2 %; Lymphocytes # (auto) 2.27 K/uL (1.2-3.4); Lymphocytes % (auto) 8.6 %; Monocytes # (auto) 1.79 K/uL (0.24-0.82); Monocytes % (auto) 6.7 %; Neutrophils # (auto) 21.53 K/uL (1.4-6.5); Neutrophils % (auto) 81.2 %
--- NOTE | 2022-01-19 12:08 | Discharge Summary ---
Date of Service January 19, 2022 Admission HPI Per Admitting Provider Gaye Segura is an 81 year old female who presents to the ER with left facial swelling. She reports first noticing pain on the left side of her face while sleeping last night. This morning it was more swollen and painful. Saw her PA in PCP office and organized a CT neck soft tissue which showed a parotid abscess and she was referred to the ER. No fever or chills. No difficulty breathing but pain on trying to open her mouth. She reports increased diarrhea with her latest chemotherapy which has been making her more dehydrated than usual. She reports a penicillin allergy that she reports was a rash in childhood. Principal Diagnosis Left parotid abscess, submandibular sialoadenitis, dehydration Discharge Exam Constitutional WD/WN, vitals as above Eyes + anicteric sclerae ENMT external ear and nose normal, oropharynx normal Neck trachea midline, no thyromegaly + submandibular swelling; + abnormal visual inspection (Swelling left submandibular region, much improved), no neck crepitus and no nuchal rigidity firm but fluctuant mass left submandibular region about 2 cm, not as tender as previously Respiratory normal respiratory effort, lungs clear to auscultation Cardiovascular RRR, no murmur, no edema Chest (Breasts) Chest: normal inspection of chest Gastrointestinal (Abdomen) normal bowel sounds, soft, nontender, no hepatosplenomegaly Musculoskeletal Extremities: extremities normal to inspection; no cyanosis and no clubbing Skin no rashes, warm and dry Neurologic moves all extremities and awake; no focal motor deficits Psychiatric A+Ox3, euthymic affect Lymphatic no lymphedema Discharge Data Allergies Allergy/AdvReac Type Severity Reaction Status Date / Time Penicillins Allergy Intermediate swelling Verified 01/17/22 21:48 Consultations 01/17/22 19:09 ED Decision to Admit Stat 01/17/22 19:31 Consult Otolaryngology (Head and Neck) Routine Hospital Course (1) Parotid abscess: Presents with 2 days of worsening swelling in the left submandibular region with sweats and chills at home but no documented fevers. Presented with leukocytosis, and CT soft tissues of the neck showed left parotid fluid collection consistent with abscess measuring 2.1 x 1.6 cm Now significantly improved after 2 days of IV ceftriaxone and Flagyl as well as IV steroids x 1 day WBC count initially 23, then down to 17. Back up to 23 due to steroid use Vitals are stable Seen by ENT who recommends no surgical intervention -discharge on p.o. clindamycin to finish out a 7-day course. -discontinued IV steroids Advised biting lemon wedges or using lemon juice to help relieve any possible blocked salivary duct (2) Submandibular sialoadenitis: As above (3) Anemia: Hemoglobin 9.9 down from 11.2 on admission No evidence of bleeding this is likely hemodilutional She is also currently undergoing active chemotherapy for her pancreatic cancer and this is likely secondary to antineoplastic effect Follow CBC as an outpt (4) Ulcerative colitis: Increased diarrhea likely as a result of chemotherapy rather than UC flare Continue her usual home meds with balsalazide 2250mg PO TID Follow-up with GI -advised increase Lomotil to 2 tabs tid, continue loperamide dc amitiza and miralax (5) Pancreatic cancer: 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 - last had chemotherapy January 02 Follow-up with oncology (6) Vitamin B12 deficiency: Continue cyanocobalamin (7) Vitamin D deficiency: Continue vitamin D supplementation (8) Hypertension: Continue olmesartan 20mg PO daily (9) Hyperlipidemia: Continue rosuvastatin 10mg PO daily (10) Penicillin allergy: Highly recommend outpatient allergy testing to see if this is a true allergy Plan VTE Prophyalxis -Lovenox as she is high risk for VTE given underlying cancer Disposition - dc to home at [facility] today Total Time Total Time Spent Total Time Spent (In Minutes): 35 min Discharge Plan Discharge Items Patient Disposition: Home - Self-Care Reason For Visit: LEFT PAROTID ABSCESS Discharge Diagnosis: Left parotid abscess, submandibular sialoadenitis Condition on Discharge: Good Activity: Resume your previous activity Non-emergency contact: Primary Care Provider and Oncologist Call non-emergency contact if: you have any medication questions, your symptoms worsen, you have a fever and your temperature is above 101 Follow-up/Referrals: Alfredo Hernandez DO [Primary Care Provider] - (Follow up within 1 week.) Diet: Heart Healthy Addtl Attending Provider Instructions: Please finish out 5 more days of antibiotics for your neck infection. Try biting on lemon wedges or drinking lemon juice to help increase saliva production to drain any clogged salivary ducts. Follow up with your Oncology provider as scheduled and with your PCP within 1 week after discharge. You can increase your Lomotil to 2 tab three times a day for your diarrhea. A new prescription for this dose was called in for you. Ask your PCP about a referral to an vocational psychologist for penicillin allergy testing. Pending Studies at Discharge: Yes (Final blood cultures results-no growth to date) Stand-Alone Forms: [facility], Smoking Cessation Medications and DC Order Prescriptions: New clindamycin HCl 300 mg capsule 300 mg PO Q8H 5 Days Qty: 15 0RF Continued famotidine 20 mg tablet 20 mg PO BID Qty: 30 2RF dicyclomine 10 mg capsule 10 mg PO QID PRN (Reason: abdominal discomfort) Qty: 60 2RF balsalazide 750 mg capsule 2,250 mg PO TID Qty: 540 3RF ascorbic acid (vitamin C) 500 mg capsule 500 mg PO DAILY Qty: 7 0RF aspirin 81 mg capsule 81 mg PO DAILY Qty: 30 2RF melatonin 10 mg capsule 10 mg PO HS PRN (Reason: sleep) Qty: 1 0RF olmesartan 20 mg tablet 20 mg PO DAILY Qty: 30 2RF rosuvastatin 10 mg tablet 10 mg PO DAILY Qty: 30 2RF cyanocobalamin (vitamin B-12) 1,000 mcg capsule 1,000 mcg PO DAILY Qty: 30 0RF cholecalciferol (vitamin D3) 50 mcg (2,000 unit) capsule 50 mcg PO DAILY Qty: 30 0RF ondansetron 4 mg tablet,disintegrating 4 mg PO Q8H PRN (Reason: nausea and vomiting) Qty: 30 0RF loperamide 2 mg capsule 2 mg PO Q6H PRN (Reason: Diarrhea) biotin 1 mg capsule 1 mg PO DAILY cyclosporine [Restasis] 0.05 % dropperette 1 drp OPB BID potassium chloride 10 mEq tablet extended release 10 meq PO DAILY Changed diphenoxylate-atropine 2.5-0.025 mg tablet 2 tab PO TID Qty: 180 0RF Discontinued lubiprostone [Amitiza] 24 mcg capsule 24 mcg PO BID Qty: 180 3RF polyethylene glycol 3350 8.5 gram powder in packet 8.5 g PO DAILY PRN (Reason: Constipation) Discharge Orders: Discharge Order (Routine); Ordered 01/19/22 Ordered By: Nubia Puentes Admission Data Admit Date/Time: 01/18/22 12:15 Attending Provider: Nubia Puentes Admit Provider: Piter Rhodes Primary Care Provider: Alfredo Hernandez Other Providers: Piter Rhodes ; Gege Dangelo Coding Level of Care Code D/C DAY MANAGEMENT >30 MINS Diagnoses Parotid abscess K11.3 Submandibular sialoadenitis K11.20 Anemia D64.9 Ulcerative colitis K51.90 Pancreatic cancer C25.9 Vitamin B12 deficiency E53.8 Vitamin D deficiency E55.9 Hypertension I10 Hyperlipidemia E78.5 Penicillin allergy Z88.0
--- NOTE | 2022-01-19 12:41 | Ears,Nose,Throat Progress Note ---
Date of Service January 19, 2022 Assessment & Plan (1) Parotitis, acute: Plan: Firm left submandibular swelling with no sign of abcess. Agree with PO antibioics on discharge. Heating pad. f/u in my office 2 weeks. Thanks (2) Submandibular sialoadenitis: Admission and Anticipated Discharge Date Admission Date: January 18, 2022 Subjective Patient reports feeling much better today. Much less swelling in the left side of her neck and is able to eat and swallow. Her diet was advanced throughout the day and I went back to check on her at dinnertime and she was feeling well enough for discharge but did not have a ride home. She denies any headache or lightheadedness, no chest pains or shortness of breath, no abdominal pains or nausea. In fact, her usual diarrhea had slowed way down. Physical Exam Constitutional: WD/WN, vitals as above Eyes: PERRL, conjunctivae normal, anicteric sclerae ENMT: external ear and nose normal, oropharynx normal Neck: 3 cm left sibmandibular gland swelling, firm, poorly mobile, no sign of abcess Results & Data ([facility]) Vital Signs (Past 12 Hours) Vital Signs Temp Pulse Resp BP Pulse Ox 01/19/22 12:19 37 C 75 16 154/63 H 97 01/19/22 08:47 37 C 75 16 154/63 H 97
== END 2022-01-19 14:20 | disposition home or self-care (01) | DRG 155 ==
LOC: 3N 17:10 → ED 17:10 → SUATTDRO 19:41 → 3N 21:35

== ENCOUNTER 2022-07-17 06:00 | Observation (INO) ==
[2022-07-17] MEDS ORDERED: SODIUM CHLORIDE 0.9% 500 ML IV STA (06:04)
[2022-07-17 06:42] LABS: Basophils # (auto) 0.02 K/uL (0-0.2); Basophils % (auto) 0.3 %; Eosinophils # (auto) 0.06 K/uL (0-0.50); Eosinophils % (auto) 0.8 %; Hematocrit (blood only) 33.6 % (34.1-44.9); Hemoglobin 11.2 g/dl (12.0-16.0); Immature Granulocytes # (auto) 0.04 K/uL (0.00-0.02); Immature Granulocytes % (auto) 0.5 %; Lymphocytes # (auto) 0.86 K/uL (1.2-3.4); Lymphocytes % (auto) 10.8 %; Mean Corpuscular Hemoglobin 31.8 pg (25.0-34.0); Mean Corpuscular Hgb Conc 33.3 g/dL (32.0-36.0); Mean Corpuscular Volume 95.5 fL (80.0-100.0); Monocytes % (auto) 11.3 %; Neutrophils # (auto) 6.11 K/uL (1.4-6.5); Neutrophils % (auto) 76.3 %; Platelet Count 305 K/uL (130-400); RDW Coefficient of Variation 14.5 % (11.5-14.5); RDW Standard Deviation 50.7 fL (36.4-46.3); Red Blood Count 3.52 M/uL (3.93-5.22); White Blood Count 7.99 K/ul (4.8-10.8)
[2022-07-17] MEDS ORDERED: HYDROmorphone INJ 1 MG/ML SYRINGE IV STA (06:44)
--- NOTE | 2022-07-17 07:02 | Emergency Department Note ---
History of Present Illness General Chief Complaint: Abdominal Pain Time Seen by Provider: 07/17/22 06:35 History of Present Illness Provider Complaint: abdominal pain Onset (ago): 1 day(s) Pain Consistency: constant Location: epigastric Migration to: no migration Severity: moderate Maximum Pain Intensity: 5 Current Pain Intensity: 5 Quality: + stabbing, + aching, + sharp and + dull Relieved By: + nothing Exacerbated By: + nothing Context: no foreign travel, no possible food poisoning, no sick contacts, no recent antibiotic use, no recent surgery/procedure or no recent injury Associated Symptoms: + nausea; no diarrhea, no fever, no chills, no constipation, no dysuria, no hematemesis, no hematochezia, no melena, no hematuria, no headache, no neck pain and no chest pain Related Data Patient Confirmed : No Home Medications Medication Instructions Recorded Confirmed Type ascorbic acid (vitamin C) 500 mg 500 mg PO DAILY #7 caps 05/11/21 06/19/22 Rx capsule aspirin 81 mg capsule 81 mg PO DAILY #30 caps 05/11/21 06/19/22 Rx cyanocobalamin (vitamin B-12) 1,000 mcg PO DAILY #30 caps 05/11/21 06/19/22 Rx 1,000 mcg capsule melatonin 10 mg capsule 10 mg PO HS PRN sleep #1 cap 05/11/21 06/19/22 Rx olmesartan 20 mg tablet 20 mg PO DAILY #30 tabs 05/11/21 06/19/22 Rx rosuvastatin 10 mg tablet 10 mg PO DAILY #30 tabs 05/11/21 06/19/22 Rx loperamide 2 mg capsule 2 mg PO Q6H PRN Diarrhea 11/30/21 06/19/22 History cyclosporine 0.05 % eye drops in a 1 drp OPB BID 01/17/22 06/19/22 History dropperette (Restasis) potassium chloride 10 mEq 10 meq PO DAILY 01/17/22 06/19/22 History tablet,extended release diphenoxylate-atropine 2.5 2 tab PO TID #180 tabs 01/19/22 06/19/22 Rx mg-0.025 mg tablet prednisone 10 mg tablet 10 mg PO DAILY 02/06/22 06/19/22 History acetaminophen 650 mg 650 mg PO Q12H 03/07/22 06/19/22 History tablet,extended release (Tylenol 8 Hour) multivitamin (Daily Multi-Vitamin 1 tab PO DAILY 03/07/22 06/19/22 History tablet) prevagen See Rx Instructions .Route .COMPLEX 03/07/22 06/19/22 History psyllium husk 0.4 gram capsule 0.4 g PO DAILY 03/07/22 06/19/22 History (Metamucil) balsalazide 750 mg capsule 2,250 mg PO TID 90 days #810 caps 03/13/22 06/19/22 Rx mirabegron 25 mg tablet,extended 25 mg PO DAILY #30 tabs 04/06/22 06/19/22 Rx release 24 hr dicyclomine 10 mg capsule 10 mg PO QID PRN abdominal 05/17/22 06/19/22 Rx discomfort #60 caps gabapentin 300 mg capsule 300 mg PO TID pain 07/17/22 07/17/22 History levothyroxine 25 mcg tablet 25 mcg PO DAILYBB 07/17/22 07/17/22 History oxycodone 5 mg tablet 5 mg PO Q6H PRN Pain 07/17/22 07/17/22 History Allergies Allergy/AdvReac Type Severity Reaction Status Date / Time Penicillins Allergy Intermediate swelling Verified 06/19/22 11:54 Past Med/Surg History Medical History COVID-19 Pancreatic cancer Ulcerative colitis Surgical History H/O bilateral cataract extraction H/O: hysterectomy 1990 Family History Mother Brain tumor Father Metastatic cancer Sister Ovarian cancer Denies family history of Prostate cancer Breast cancer Lung cancer Colorectal cancer Social History Smoking Status: Never smoker Second Hand Exposure: No; Hx Alcohol Use: Yes Alcohol type: wine Hx Substance Use: No Preferred Language: Montenegrin Communication Ability: Effective Visual Impairment: Limited Hearing Ability: Normal Route Supervisor Required: No Beliefs That Will Affect Care: None marital status: / Current Living Situation: Alone Current Living Situation Comment: lives in [place] current occupational status: retired Feels Safe at Home: Yes Childhood Exposure to Second-Hand Smoke: Yes caffeine: Yes Dental Care, Regularly: Yes Physical Activity Frequency: Does not Exercise Seatbelt Use: always Sunscreen Use: Yes Assistive Devices: None Physical Exam Vital Signs: Vital Signs - 24 hr 07/17/22 06:05 07/17/22 06:12 07/17/22 06:12 Temperature 36.9 C Temperature Source Oral Pulse Rate [Right Finger] 85 Pulse Rhythm [Righ t Finger] Respiratory Rate 18 Respiratory Effort / Characteristics Respiratory Depth Respiratory Patter n Blood Pressure [Ri ght Arm] 167/96 H Blood Pressure Sammie n [Right Arm] 119 Blood Pressure Pos ition [Right Arm] Pulse Oximetry 94 94 Oxygen Delivery Me thod Room Air Room Air Sepsis Recent Feve r Within 48 Hours No Sepsis New/Unexpla ined Change in Men north Status No Sepsis Action Take n by Nursing No Action Required 07/17/22 08:00 07/17/22 09:20 Temperature Temperature Source Pulse Rate [Right Finger] 77 76 Pulse Rhythm [Righ t Finger] Regular Regular Respiratory Rate 18 18 Respiratory Effort / Characteristics Non-Labored Non-Labored Respiratory Depth Normal Normal Respiratory Patter n Regular Regular Blood Pressure [Ri ght Arm] 144/62 H 164/79 H Blood Pressure Sammie n [Right Arm] 89 107 Blood Pressure Pos ition [Right Arm] Lying Lying Pulse Oximetry 91 95 Oxygen Delivery Me thod Room Air Room Air Sepsis Recent Feve r Within 48 Hours Sepsis New/Unexpla ined Change in Men north Status Sepsis Action Take n by Nursing Physical Exam: Physical Exam GENERAL: She is oriented to person, place, and time. She appears well-developed and well-nourished. She does not appear distressed. HENT: Exam performed. -Head: Normocephalic and atraumatic. -Right Ear: External ear normal. No mastoid tenderness. -Left Ear: External ear normal. No mastoid tenderness. -Mouth/Throat: The oropharynx is clear and moist. No trismus in the jaw. No dental abscesses or uvula swelling. No oropharyngeal exudate or tonsillar abscesses. EYES: Conjunctivae and EOM are normal. Pupils are equal, round, and reactive to light. Right eye exhibits no discharge. Left eye exhibits no discharge. No scle ral icterus. NECK: Normal range of motion. Neck supple. No JVD present. No spinous process tenderness present. No carotid bruit present. No rigidity. No tracheal deviation and normal range of motion present. No Brudzinski's sign and no Kernig's sign noted. CV: Normal rate, regular rhythm, normal heart sounds and intact distal pulses. There is no peripheral edema. Palpable radial pulses bue. PULM/CHEST: Effort normal and breath sounds normal. No respiratory distress. No stridor. She has no wheezes. She has no rales. -Chest Wall: She exhibits no tenderness. ABD: The abdomen is soft. Bowel sounds are normal. She has no distension. No mass is present. There is tenderness to palpation of the epigastric area. There is no rebound, no guarding, no Chavez's sign and no tenderness at McBurney's point. Rovsig negative MUSC/SKEL: Normal range of motion. There is no peripheral edema, tenderness or deformity. LYMPH: No cervical adenopathy. NEURO: She is alert and oriented to person, place, and time. She has normal strength. No cranial nerve deficit or sensory deficit. Coordination and gait no rmal. GCS eye subscore is 4. GCS verbal subscore is 5. GCS motor subscore is 6. Cerebellar tests wnl. SKIN: Skin is warm and dry. She is not diaphoretic. PSYCH: She has a normal mood and affect. Behavior is normal. Judgment and thought content normal. Course Course 0635: The patient was evaluated in room C7. A complete history and physical exam was performed Cardiac monitoring: An order was placed for continuous cardiac monitoring. The monitor shows a rate of 80 with sinus rhythm External medical records reviewed from the patient's personal [facility]. Patient is a DNR/DNI with comfort care measures only. 0940: Vital signs stable. Labs within normal limits. Imaging shows progression of metastatic disease however no obstruction or perforation. Discussed the results with the patient. Patient states she is still having increasing amounts of abdominal pain. Patient will be admitted to the [facility] Hospitalist team for intractable abdominal pain secondary to her pancreatic cancer. Discussed case with Sugar who stated to admit to Dr. Rhodes. Administered Medications Discontinued Medications Hydromorphone HCl (Hydromorphone Inj 1 Mg/Ml Syringe) 1 mg IV NOW STA Stop: 07/17/22 06:45 Last Admin: 07/17/22 06:49 Dose: 1 mg Documented By: LEX Hydromorphone HCl (Hydromorphone Inj 0.5 Mg/0.5 Ml Syr) 0.5 mg IV NOW STA Stop: 07/17/22 09:12 Last Admin: 07/17/22 09:20 Dose: 0.5 mg Documented By: Sodium Chloride (Nss) 500 mls @ 999 mls/hr IV .Q31M STA Stop: 07/17/22 06:34 Last Infusion: 07/17/22 06:49 Dose: 0 mls/hr Documented By: Admin: 07/17/22 06:16 Dose: 999 mls/hr Documented By: LEX Ioversol (Optiray 350 100ml) 94 ml IV ONCE ONE Stop: 07/17/22 07:47 Last Admin: 07/17/22 07:46 Dose: 94 ml Documented By: HALLE Medical Decision Making Laboratory Data Attestation: I reviewed the patient's lab results. 07/17/22 06:15 07/17/22 06:15 Lab Results 07/17/22 07/17/22 07/17/22 Range/Units 06:15 06:15 06:15 WBC 7.99 (4.8-10.8) K/ul RBC 3.52 L (3.93-5.22) M/uL Hgb 11.2 L (12.0-16.0) g/dl Hct 33.6 L (34.1-44.9) % MCV 95.5 (80.0-100.0) fL MCH 31.8 (25.0-34.0) pg MCHC 33.3 (32.0-36.0) g/dL RDW Std Deviation 50.7 H (36.4-46.3) fL RDW Coeff of Venessa 14.5 (11.5-14.5) % Plt Count 305 (130-400) K/uL MPV 10.0 (9.4-12.3) fL Immature Gran % (Auto) 0.5 % Neut % (Auto) 76.3 % Lymph % (Auto) 10.8 % Louisa % (Auto) 11.3 % Eos % (Auto) 0.8 % Baso % (Auto) 0.3 % Neut # (Auto) 6.11 (1.4-6.5) K/uL Lymph # (Auto) 0.86 L (1.2-3.4) K/uL Louisa # (Auto) 0.90 H (0.24-0.82) K/uL Eos # (Auto) 0.06 (0-0.50) K/uL Baso # (Auto) 0.02 (0-0.2) K/uL Immature Gran # (Auto) 0.04 H (0.00-0.02) K/uL Sodium 138 (136-145) mmol/L Potassium 4.2 (3.5-5.1) mmol/L Chloride 102 (98-107) mmol/L Carbon Dioxide 28 (21-32) mmol/L Anion Gap 8 (3-11) BUN 23 (6-23) mg/dl Creatinine 0.73 (0.6-1.2) mg/dl Est Cr Clr Drug Dosing 53.4 ml/min Est GFR ( Amer) 88.9 ml/min Est GFR (Non-Af Amer) 76.7 ml/min BUN/Creatinine Ratio 31.5 H (10-20) Glucose 109 H (70-99(Fasting)) mg/dl Calcium 9.3 (8.5-10.1) mg/dl Total Bilirubin 0.4 (0.2-1.0) mg/dl AST 80 H (13-39) U/L ALT 30 (7-52) U/L Alkaline Phosphatase 360 H (34-104) U/L Total Protein 6.7 (6.0-8.3) gm/dl Albumin 3.6 (3.4-5.0) gm/dl Globulin 3.1 (2.5-4.0) gm/dl Albumin/Globulin Ratio 1.2 (0.9-2) Lipase 8 L (11-82) U/L Urine Color Urine Appearance (Clear) Urine pH (4.5-7.5) Ur Specific [place] (1.000-1.030) Urine Protein (Negative) Urine Glucose (UA) (Negative) Urine Ketones (Negative) Urine Blood (Negative) Urine Nitrite (Negative) Urine Bilirubin (Negative) Urine Urobilinogen (Negative) Ur Leukocyte Esterase (Negative) SARS-CoV-2, RNA, NAAT NEGATIVE (NEGATIVE) 07/17/22 Range/Units 08:07 WBC (4.8-10.8) K/ul RBC (3.93-5.22) M/uL Hgb (12.0-16.0) g/dl Hct (34.1-44.9) % MCV (80.0-100.0) fL MCH (25.0-34.0) pg MCHC (32.0-36.0) g/dL RDW Std Deviation (36.4-46.3) fL RDW Coeff of Venessa (11.5-14.5) % Plt Count (130-400) K/uL MPV (9.4-12.3) fL Immature Gran % (Auto) % Neut % (Auto) % Lymph % (Auto) % Louisa % (Auto) % Eos % (Auto) % Baso % (Auto) % Neut # (Auto) (1.4-6.5) K/uL Lymph # (Auto) (1.2-3.4) K/uL Louisa # (Auto) (0.24-0.82) K/uL Eos # (Auto) (0-0.50) K/uL Baso # (Auto) (0-0.2) K/uL Immature Gran # (Auto) (0.00-0.02) K/uL Sodium (136-145) mmol/L Potassium (3.5-5.1) mmol/L Chloride (98-107) mmol/L Carbon Dioxide (21-32) mmol/L Anion Gap (3-11) BUN (6-23) mg/dl Creatinine (0.6-1.2) mg/dl Est Cr Clr Drug Dosing ml/min Est GFR ( Amer) ml/min Est GFR (Non-Af Amer) ml/min BUN/Creatinine Ratio (10-20) Glucose (70-99(Fasting)) mg/dl Calcium (8.5-10.1) mg/dl Total Bilirubin (0.2-1.0) mg/dl AST (13-39) U/L ALT (7-52) U/L Alkaline Phosphatase (34-104) U/L Total Protein (6.0-8.3) gm/dl Albumin (3.4-5.0) gm/dl Globulin (2.5-4.0) gm/dl Albumin/Globulin Ratio (0.9-2) Lipase (11-82) U/L Urine Color Yellow Urine Appearance Clear (Clear) Urine pH 7.5 (4.5-7.5) Ur Specific [place] 1.030 (1.000-1.030) Urine Protein Negative (Negative) Urine Glucose (UA) Negative (Negative) Urine Ketones Negative (Negative) Urine Blood Negative (Negative) Urine Nitrite Negative (Negative) Urine Bilirubin Negative (Negative) Urine Urobilinogen Negative (Negative) Ur Leukocyte Esterase Negative (Negative) SARS-CoV-2, RNA, NAAT (NEGATIVE) Imaging Data Radiologist's Impression: Abdomen/Pelvis CT 07/17/22 06:35 CT abd pelvis IV con only CLINICAL HISTORY: epigastric pain, history of pancreatic cancer TECHNIQUE: Helical axial images of the abdomen and pelvis were obtained and displayed. Automated dose lowering techniques and/or adjustment according to patient size were utilized for this exam. This exam was performed with intravenous contrast. CT DOSE: 318.91 mGy.cm COMPARISON: Comparison is made to CT abdomen pelvis 05/14/2022 FINDINGS: Lower chest: Bibasilar atelectasis versus scarring is seen. Liver: Interval increase in size and number of hepatic lesions. The previously measured lesion measures 60 x 58 mm compared to 48 x 46 mm and involves both sides of the gallbladder fossa. There is also a new right hepatic dome lesion measuring 23 mm. A few cystic densities are again noted. Gallbladder and biliary tree: The gallbladder has developed a mildly bilobed appearance without evidence of significant narrowing of the lumen. This is likely positional, less likely direct invasion of the hepatic metastasis. No i ntra- or extrahepatic biliary ductal dilation. Pancreas: Ill-defined 38 x 28 mm soft tissue mass in the body of the pancreas is slightly enlarged from prior exam where it measures 24 x 35 mm. Distal pancreatic ductal dilation and parenchymal atrophy is seen. Spleen: Unremarkable. Adrenals: Unremarkable. Kidneys and ureters: Unremarkable. Bladder: Unremarkable. Reproductive organs: Patient is status post hysterectomy. Bowel: Diverticulosis is seen without evidence of diverticulitis. Lymph nodes Retroperitoneal: Unremarkable. Pelvic: Unremarkable. Mesenteric: Unremarkable. Peritoneum: Peritoneal nodules are seen most prominent in the right upper quadrant and left upper quadrant. These have enlarged from prior exam, it previously measured 13 mm nodule now measures 21 mm. Previously noted 16mm deposit in the pelvis now measures 20 mm in diameter. Vessels: Atherosclerotic calcifications are seen. Abdominal wall: Unremarkable. Bones: Degenerative changes in the visualized spine. IMPRESSION: Interval enlargement of the primary pancreatic mass and hepatic and peritoneal metastases. Additional findings as above. ACT 112: Negative or not required by law. Electronically signed by: Mando Joseph M.D. 07/17/2022 8:43 AM ECG Data Attestation: I personally reviewed and interpreted this ECG as follows: Indication: abdominal pain Rate (beats per minute): 86 Rhythm: normal sinus Findings: no ST depression, no ST elevation or no prolonged QT Additional Comments: QRS 76 MDM Narrative 0635: The patient was evaluated in room C7. A complete history and physical exam was performed Cardiac monitoring: An order was placed for continuous cardiac monitoring. The monitor shows a rate of 80 with sinus rhythm External medical records reviewed from the patient's personal [facility]. Patient is a DNR/DNI with comfort care measures only. 0940: Vital signs stable. Labs within normal limits. Imaging shows progression of metastatic disease however no obstruction or perforation. Discussed the results with the patient. Patient states she is still having increasing amounts of abdominal pain. Patient will be admitted to the [facility] hospitalist team for intractable abdominal pain secondary to her pancreatic cancer. Discussed case with Sugar who stated to admit to Dr. Rhodes. Impression & Plan Intractable abdominal pain, Pancreatic cancer Discharge Plan Visit Data Chief Complaint: Abdominal Pain ED Provider: Victorino Reynoso Discharge Problem: Intractable abdominal pain, Pancreatic cancer Patient Disposition: Being Evaluated by Hospitalist Forms Stand Alone Forms: [facility] Prescriptions Prescriptions: No Action balsalazide 750 mg capsule 2,250 mg PO TID 90 Days Qty: 810 3RF dicyclomine 10 mg capsule 10 mg PO QID PRN (Reason: abdominal discomfort) Qty: 60 2RF ascorbic acid (vitamin C) 500 mg capsule 500 mg PO DAILY Qty: 7 0RF aspirin 81 mg capsule 81 mg PO DAILY Qty: 30 2RF melatonin 10 mg capsule 10 mg PO HS PRN (Reason: sleep) Qty: 1 0RF olmesartan 20 mg tablet 20 mg PO DAILY Qty: 30 2RF rosuvastatin 10 mg tablet 10 mg PO DAILY Qty: 30 2RF cyanocobalamin (vitamin B-12) 1,000 mcg capsule 1,000 mcg PO DAILY Qty: 30 0RF multivitamin [Daily Multi-Vitamin] Tablet 1 tab PO DAILY prevagen See Rx Instructions .ROUTE .COMPLEX Rx Instructions: once daily; acetaminophen [Tylenol 8 Hour] 650 mg tablet extended release 650 mg PO Q12H psyllium husk [Metamucil] 0.4 gram capsule 0.4 g PO DAILY prednisone 10 mg tablet 10 mg PO DAILY Rx Instructions: as directed mirabegron 25 mg tablet extended release 24 hr 25 mg PO DAILY Qty: 30 5RF loperamide 2 mg capsule 2 mg PO Q6H PRN (Reason: Diarrhea) cyclosporine [Restasis] 0.05 % dropperette 1 drp OPB BID potassium chloride 10 mEq tablet extended release 10 meq PO DAILY diphenoxylate-atropine 2.5-0.025 mg tablet 2 tab PO TID Qty: 180 0RF levothyroxine 25 mcg tablet 25 mcg PO DAILYBB gabapentin 300 mg capsule 300 mg PO TID oxycodone 5 mg tablet 5 mg PO Q6H PRN (Reason: Pain) Referrals Referrals: Alfredo Hernandez DO [Primary Care Provider] -
[2022-07-17 07:32] LABS: Albumin Globulin Ratio 1.2 (0.9-2); Albumin Level 3.6 gm/dl (3.4-5.0); BUN Creatinine Ratio 31.5 (10-20); Bilirubin,Total 0.4 mg/dl (0.2-1.0); Calcium 9.3 mg/dl (8.5-10.1); Creatinine Clr Calc Pharmacy 53.4 ml/min; Est GFR (African American) 88.9 ml/min; Est GFR (Non-African American) 76.7 ml/min; Globulin 3.1 gm/dl (2.5-4.0); Potassium 4.2 mmol/L (3.5-5.1); Total Protein 6.7 gm/dl (6.0-8.3)
[2022-07-17] MEDS ORDERED: OPTIRAY 350 100ml IV ONE (07:46)
--- NOTE | 2022-07-17 08:11 | Electrocardiogram Report ---
Test Reason : Blood Pressure : / mmHG Vent. Rate : 086 BPM Atrial Rate : 086 BPM P-R Int : 152 ms QRS Dur : 076 ms QT Int : 360 ms P-R-T Axes : 001 007 032 degrees QTc Int : 430 ms Normal sinus rhythm Normal ECG When compared with ECG of 29-FEB-2000 23:40, No significant change was found Confirmed by Colt Beltrán ([id number]) on 07/17/2022 8:10:57 AM Referred By: REFERRED SELF Confirmed By:Colt Beltrán
[2022-07-17 08:23] LABS: Appearance Urine Clear (Clear); Bilirubin Urine Negative (Negative); Blood Urine Negative (Negative); Color Urine Yellow; Glucose Urine UA Negative (Negative); Ketones Urine Negative (Negative); Leukocyte Esterase Urine Negative (Negative); Nitrite Urine Negative (Negative); Protein Urine Negative (Negative); Urobilinogen Urine Negative (Negative); pH Urine 7.5 (4.5-7.5)
--- NOTE | 2022-07-17 08:45 | CT Scan Report ---
CT abd pelvis IV con only CLINICAL HISTORY: epigastric pain, history of pancreatic cancer TECHNIQUE: Helical axial images of the abdomen and pelvis were obtained and displayed. Automated dose lowering techniques and/or adjustment according to patient size were utilized for this exam. This e xam was performed with intravenous contrast. CT DOSE: 318.91 mGy.cm COMPARISON: Comparison is made to CT abdomen pelvis 05/14/2022 FINDINGS: Lower chest: Bibasilar atelectasis versus scarring is seen. Liver: Interval increase in size and number of hepatic lesions. The previously measured lesion measur es 60 x 58 mm compared to 48 x 46 mm and involves both sides of the gallbladder fossa. There is also a new right hepatic dome lesion measuring 23 mm. A few cystic densities are again noted. Gallbladder and biliary tree: The gallbladder has developed a mildly bilobed appearance without evide nce of significant narrowing of the lumen. This is likely positional, less likely direct invasion of the hepatic metastasis. No intra- or extrahepatic biliary ductal dilation. Pancreas: Ill-defined 38 x 28 mm soft tissue mass in the body of the pancreas is slightly enlarged fr om prior exam where it measures 24 x 35 mm. Distal pancreatic ductal dilation and parenchymal atrophy is seen. Spleen: Unremarkable. Adrenals: Unremarkable. Kidneys and ureters: Unremarkable. Bladder: Unremarkable. Reproductive organs: Patient is status post hysterectomy. Bowel: Diverticulosis is seen without evidence of diverticulitis. Lymph nodes Retroperitoneal: Unremarkable. Pelvic: Unremarkable. Mesenteric: Unremarkable. Peritoneum: Peritoneal nodules are seen most prominent in the right upper quadrant and left upper stepan drant. These have enlarged from prior exam, it previously measured 13 mm nodule now measures 21 mm. P reviously noted 16mm deposit in the pelvis now measures 20 mm in diameter. Vessels: Atherosclerotic calcifications are seen. Abdominal wall: Unremarkable. Bones: Degenerative changes in the visualized spine. IMPRESSION: Interval enlargement of the primary pancreatic mass and hepatic and peritoneal metastases. Additional findings as above. ACT 112: Negative or not required by law. Electronically signed by: Mando Joseph M.D. 07/17/2022 8:43 AM
[2022-07-17] MEDS ORDERED: HYDROmorphone INJ 0.5 MG/0.5 ML SYR IV STA (09:11)
--- NOTE | 2022-07-17 09:44 | History & Physical Report ---
Date of Service July 17, 2022 Assessment & Plan (1) Pancreatic cancer: Plan: - Recently diagnosed November 2020, previously followed with oncology in [facility], recently moved to [place] to be with son and established with [facility] in April 2021. - Cycle #10 of FOLFIRNOX this fall. - Recently prescribed oxycodone IR 5 mg Q6h prn on 06/24 for worsening pain--had initially been taking but had to stop due to constipation. - CT A/P: interval enlargement of the primary pancreatic mass with hepatic and peritoneal metastases. No other acute findings. 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 - MiraLax TID. Additional agents as needed. - Will consult palliative care with patient's permission to discuss goals of care and pain management options for home to avoid recurrent hospitalizations for such. - Will also discuss case with oncology regarding possible additional treatments vs recommendations for palliative/hospice. - Patient recently went to [facility] for second opinion regarding treatment for her metastatic pancreatic cancer, oncologist there suggested immunotherapy, family believes it will likely have to be done out of the area andthey are unsure if would be able to be facilitated, however they are still interested in discussing this option with Dr. Mejia to see if treatment can be done locally. (2) Change in bowel habits: Plan: - On several medications for diarrhea, with worsening constipation since starting oxycodone for cancer related pain. - Miralax TID scheduled; hold Imodium, Lomotil. (3) Hypertension: Plan: - Continue olmesartan or formulary equivalent. (4) Hyperlipidemia: Plan: - Hold statin for now for elevated AST and risk > benefit/reduce pill burden given her metastatic pancreatic cancer. (5) Inflammatory bowel disease: Plan: - Continue balsalazide TID; hold anti-diarrheals. Plan - Obs on med/surg. - SCDs, Lovenox for VTE ppx. - DNR/DNI. History of Present Illness Chief Complaint: Abdominal pain x1 day Primary Care Provider: DO Shahbaz Hanson is an 82-year-old female with a past medical history significant for metastatic pancreatic cancer, ulcerative colitis, hypertension, and dyslipidemia who is presenting today with 1 day of worsening abdominal pain. She has retroperitoneal and hepatic metastatic disease and was recently prescribed oxycodone IR 5 mg q6h prn on 07/04 by her oncologist for pain. She started taking this with some alleviation of pain, however became constipated therefore stopped it. For the past day she has had diffuse abdominal pain and cannot seem to get comfortable. No fever/chills, nausea, vomiting, melena, hematochezia, or diarrhea. Last BM 2-3 days ago. On presentation, she is hypertensive 167/96, otherwise vital signs are all within normal limits. Labs are largely unremarkable, her AST is elevated at 80 and alk phos 260, both mildly elevated from previous. She is without leukocytosis, anemia at baseline, no electrolyte abnormalities, renal function at baseline. Lipase 8. UA without evidence of infection. COVID-negative. CT A/P shows interval enlargement of the primary pancreatic mass with hepatic and peritoneal metastases. No other acute findings. The gallbladder is developed a mildly bilobed appearance without evidence of significant narrowing of the lumen, no intra or hyper extrahepatic bile or ductal dilation. Allergies Allergy/AdvReac Type Severity Reaction Status Date / Time Penicillins Allergy Intermediate swelling Verified 07/17/22 13:38 Home Medications Medication Instructions Recorded Confirmed Type ascorbic acid (vitamin C) 500 mg 500 mg PO DAILY #7 caps 05/11/21 07/17/22 Rx capsule cyanocobalamin (vitamin B-12) 1,000 mcg PO DAILY #30 caps 05/11/21 07/17/22 Rx 1,000 mcg capsule melatonin 10 mg capsule 10 mg PO HS PRN sleep #1 cap 05/11/21 07/17/22 Rx olmesartan 20 mg tablet 20 mg PO DAILY #30 tabs 05/11/21 07/17/22 Rx rosuvastatin 10 mg tablet 10 mg PO DAILY #30 tabs 05/11/21 07/17/22 Rx cyclosporine 0.05 % eye drops in a 1 drp OPB BID 01/17/22 07/17/22 History dropperette (Restasis) potassium chloride 10 mEq 10 meq PO DAILY 01/17/22 07/17/22 History tablet,extended release balsalazide 750 mg capsule 2,250 mg PO TID 90 days #810 caps 03/13/22 07/17/22 Rx dicyclomine 10 mg capsule 10 mg PO QID PRN abdominal 05/17/22 07/17/22 Rx discomfort #60 caps aspirin 81 mg chewable tablet 81 mg PO DAILY 07/17/22 07/17/22 History carboxymethylcellulose sodium 0.5 1 drp ophthalmic (eye) TID 07/17/22 07/17/22 History % eye drops (Refresh Tears) gabapentin 300 mg capsule 300 mg PO TID pain 07/17/22 07/17/22 History levothyroxine 25 mcg tablet 25 mcg PO DAILYBB 07/17/22 07/17/22 History ondansetron HCl 4 mg tablet 8 mg PO Q8 PRN Nausea 07/17/22 07/17/22 History oxycodone 5 mg tablet 5 mg PO Q6H PRN Pain 07/17/22 07/17/22 History prednisolone acetate 1 % eye 0 drp ophthalmic (eye) DIRECTED 07/17/22 07/17/22 History drops,suspension prochlorperazine maleate 10 mg 10 mg PO Q6 PRN Nausea 07/17/22 07/17/22 History tablet Miralax 17 gram oral powder packet 8.5 g PO BID PRN Constipation #24 07/18/22 07/17/22 Rx (polyethylene glycol 3350) ea Past Med/Surg History Medical History COVID-19 Pancreatic cancer Ulcerative colitis Surgical History H/O bilateral cataract extraction H/O: hysterectomy 1990 Family History Mother Brain tumor Father Metastatic cancer Sister Ovarian cancer Denies family history of Prostate cancer Breast cancer Lung cancer Colorectal cancer Social History Smoking Status: Never smoker Second Hand Exposure: No; Hx Alcohol Use: No Hx Substance Use: No Preferred Language: [place] Communication Ability: Effective Visual Impairment: Limited Hearing Ability: Normal Quartz Cutter Required: No Beliefs That Will Affect Care: None marital status: / Current Living Situation: [facility] Current Living Situation Comment: lives in [place] current occupational status: retired Feels Safe at Home: Yes Childhood Exposure to Second-Hand Smoke: Yes caffeine: Yes Dental Care, Regularly: Yes Physical Activity Frequency: Does not Exercise Seatbelt Use: always Sunscreen Use: Yes Assistive Devices: None Review of Systems Review of Systems: Constitutional: No fever/chills, weakness, fatigue, myalgias, anorexia, night sweats Eyes: No diplopia, no worsening or blurred vision ENT: normal hearing, no trouble swallowing Respiratory: No cough, sputum, dyspnea at rest or on exertion Cardiovascular: No chest pain, tightness or palpitations Abdomen: diffuse abdominal pain x1 day, last BM 2-3 days ago; no nausea, vomiting, diarrhea : Denies dysuria, hematuria, increased urgency/frequency, urinary retention Musculoskeletal: No joint pain, calf pain, swelling Neurologic: No weakness, numbness/tingling, or balance problems Psychiatric: No anxiety or depression Skin: No rash or itch Physical Exam Physical Exam: General: awake, alert, no apparent distress Head: Normocephalic, atraumatic ENT: PERRL, EOMI, no pharyngeal exudate, mucous membranes moist Chest: Clear to auscultation, on room air, no adventitious breath sounds Cardiac: Regular rate and rhythm, no murmur, no JVD, normal peripheral pulses, good capillary refill Abdominal: mildly TTP throughout abdomen; NABS x 4 quadrants, soft, no rebound, guarding or tenderness Extremities: Normal inspection, no peripheral edema or erythema, calfs nontender to palpation Psych: Normal mood and affect Neuro: AAO x 3, strength intact bilaterally and rated 5/5, no motor deficits, speech is clear, no peripheral sensory deficits Skin: no rash or erythema Results & Data Results & Data ([facility]) Vital Signs (Past 12 Hours) Vital Signs Temp Pulse Resp BP Pulse Ox O2 Del Method 07/17/22 09:20 76 18 164/79 H 95 Room Air 07/17/22 08:00 77 18 144/62 H 91 Room Air 07/17/22 06:12 94 Room Air 07/17/22 06:12 36.9 C 85 18 167/96 H 94 Room Air Laboratory Results Abnormal lab results 07/17/22 07/17/22 Range/Units 06:15 06:15 RBC 3.52 L (3.93-5.22) M/uL Hgb 11.2 L (12.0-16.0) g/dl Hct 33.6 L (34.1-44.9) % RDW Std Deviation 50.7 H (36.4-46.3) fL Lymph # (Auto) 0.86 L (1.2-3.4) K/uL [place] # (Auto) 0.90 H (0.24-0.82) K/uL Immature Gran # (Auto) 0.04 H (0.00-0.02) K/uL BUN/Creatinine Ratio 31.5 H (10-20) Glucose 109 H (70-99(Fasting)) mg/dl AST 80 H (13-39) U/L Alkaline Phosphatase 360 H (34-104) U/L Lipase 8 L (11-82) U/L Diagnostic Findings Abdomen/Pelvis CT 07/17/22 06:35 CT abd pelvis IV con only CLINICAL HISTORY: epigastric pain, history of pancreatic cancer TECHNIQUE: Helical axial images of the abdomen and pelvis were obtained and displayed. Automated dose lowering techniques and/or adjustment according to patient size were utilized for this exam. This exam was performed with intravenous contrast. CT DOSE: 318.91 mGy.cm COMPARISON: Comparison is made to CT abdomen pelvis 05/14/2022 FINDINGS: Lower chest: Bibasilar atelectasis versus scarring is seen. Liver: Interval increase in size and number of hepatic lesions. The previously measured lesion measures 60 x 58 mm compared to 48 x 46 mm and involves both sides of the gallbladder fossa. There is also a new right hepatic dome lesion measuring 23 mm. A few cystic densities are again noted. Gallbladder and biliary tree: The gallbladder has developed a mildly bilobed appearance without evidence of significant narrowing of the lumen. This is likely positional, less likely direct invasion of the hepatic metastasis. No intra- or extrahepatic biliary ductal dilation. Pancreas: Ill-defined 38 x 28 mm soft tissue mass in the body of the pancreas is slightly enlarged from prior exam where it measures 24 x 35 mm. Distal pancreatic ductal dilation and parenchymal atrophy is seen. Spleen: Unremarkable. Adrenals: Unremarkable. Kidneys and ureters: Unremarkable. Bladder: Unremarkable. Reproductive organs: Patient is status post hysterectomy. Bowel: Diverticulosis is seen without evidence of diverticulitis. Lymph nodes Retroperitoneal: Unremarkable. Pelvic: Unremarkable. Mesenteric: Unremarkable. Peritoneum: Peritoneal nodules are seen most prominent in the right upper quadrant and left upper quadrant. These have enlarged from prior exam, it previously measured 13 mm nodule now measures 21 mm. Previously noted 16mm deposit in the pelvis now measures 20 mm in diameter. Vessels: Atherosclerotic calcifications are seen. Abdominal wall: Unremarkable. Bones: Degenerative changes in the visualized spine. IMPRESSION: Interval enlargement of the primary pancreatic mass and hepatic and peritoneal metastases. Additional findings as above. ACT 112: Negative or not required by law. Electronically signed by: Mando Joseph M.D. 07/17/2022 8:43 AM Code Status & VTE Plan Code Status DNR/DNI. Supervising Physician Co-Signing Physician Notes I personally saw and examined the patient. I verified all gupta points and agree with Sugar Blank PA-C with the following exceptions and/or additions: 82 year old female with advanced metastatic pancreatic cancer. No further treatment recommended by Dr Mejia. Here for pain control but only just started on oxycodone and not using regularly due to constipation. O/E HS1+2, no murmurs, Chest CTAB, generalized abdominal pain without guarding or rebound tenderness A/P Cancer-related pain - MiraLAX TID to help with constipation, may need senna in addition. Encourage using oxycodone more regularly. Consult palliative care for ongoing symptomatic management. PG Care Time/CCT Total # of Minutes Spent Total Time Spent with Patient: Total time spent is greater than 50% in coordination of care (as documented) at patient's floor/unit and/or counseling patient: Coding Level of Care Code 71838 INT INP/OBS CARE 2/55MIN Diagnoses Pancreatic cancer C25.9 Change in bowel habits R19.4 Hypertension I10 Hyperlipidemia E78.5 Inflammatory bowel disease K52.9
[2022-07-17] MEDS ORDERED: POLYETHYLENE (MIRALAX) 17 GM PACK PO STA (10:17)
[2022-07-17] MEDS ORDERED: ONDANSETRON INJ 2 MG/ML 2 ML VIAL IV PRN (12:45)
[2022-07-17] MEDS ORDERED: DICYCLOMINE HCL 10 MG CAP PO PRN (12:45)
[2022-07-17] MEDS ORDERED: ALUMINUM/MAGNESIUM SUSP 30 ML UDC PO PRN (12:45)
[2022-07-17] MEDS ORDERED: HYDROmorphone INJ 0.5 MG/0.5 ML SYR IV PRN ×2 (12:45)
[2022-07-17] MEDS ORDERED: ACETAMINOPHEN 325 MG TAB PO PRN (12:45)
[2022-07-17] MEDS ORDERED: MELATONIN 3 MG TAB PO PRN (13:02)
[2022-07-17] MEDS: POLYETHYLENE (MIRALAX) 17 GM PACK PO SCH ×2 (13:40→22:40)
[2022-07-17] MEDS: GABAPENTIN 300 MG CAP PO SCH ×2 (13:40→22:40)
[2022-07-17] MEDS: ENOXAPARIN INJ 40 MG/0.4 ML SYR SQ SCH (13:40)
--- NOTE | 2022-07-17 13:49 | Palliative Care Consultation ---
Date of Consultation July 17, 2022 Assessment & Plan (1) Abdominal pain: with liver mets continue oxycodone with prn hydromorphone in hospital this may be pressure on liver capsule with mets which should benefit from prednisone epigastric with reflux symptoms and bloating add PPI she has order for prn bentyl monitor bowels continue prn opioids (2) Chronic constipation: She uses miralax at home which is most effective for her and has been ordered here (3) Palliative care encounter: I talked with Mrs. Segura about how she is coping with her illness. She tells me that she feels tired and has been through so many difficult treatment regimen. She was disappointed to find that her cancer had progressed despite this. She tells me that she knew that she would from this at some point. She feels that she has done everything that she wanted to do in her life. She has traveled and raised her family. The most important thing to her at this point is to have good time with her family for her remaining time. She has discussed this with Dr. Mejia but [facility] has offered her additional treatment. She would prefer not to do that. Her son is speaking with Dr. Mejia and with oncology at [facility] to get a better understanding of risks/benefits of treatment. She continues to say that she does not want further treatment and feels that her son will support her decision when he has the information that he needs. We discussed hospice care and benefits provided. She would like to pursue hospice care at [place] when ready for discharge. Discussed with case management. History of Present Illness Reason for Consultation: pain management Requesting Physician: Sugar Blank Attending Physician: Piter Rhodes MD History of Present Illness 82 yo lady with metastatic pancreatic cancer, as well as ulcerative colitis, hypertension and HLD who present with worsening abdominal pain. She has know retroperitoneal and hepatic metastases as well as peritoneal carcinomatosis. She started treatment wit CDDP/Gemzar in spring and was later on maintenance gemcitabine. Since November of 2021, she has been on Folfirinox. CT on admission shows increase in size and number of hepatic lesions, with a 23mm hepatic dome lesion on right. There is enlargement of the pancreatic lesion from prior exam. There are peritoneal nodules, most prominent in RUQ and LUQ. She had taken oxycodone at home with some relief but stopped it due to constipation. She describes two different types of pain. She has a sharp aching pain in RUQ since liver biopsy. Pain is intermittent and relieved with oxycodone. No particular triggers. She also has a more persistent pain in a band around her abdomen that is associated with acid reflux and bloating. This occurs after she eats. Her appetite has been poor as a result of this. Allergies Allergy/AdvReac Type Severity Reaction Status Date / Time Penicillins Allergy Intermediate swelling Verified 07/17/22 13:38 Home Medications Medication Instructions Recorded Confirmed Type ascorbic acid (vitamin C) 500 mg 500 mg PO DAILY #7 caps 05/11/21 07/17/22 Rx capsule cyanocobalamin (vitamin B-12) 1,000 mcg PO DAILY #30 caps 05/11/21 07/17/22 Rx 1,000 mcg capsule melatonin 10 mg capsule 10 mg PO HS PRN sleep #1 cap 05/11/21 07/17/22 Rx olmesartan 20 mg tablet 20 mg PO DAILY #30 tabs 05/11/21 07/17/22 Rx rosuvastatin 10 mg tablet 10 mg PO DAILY #30 tabs 05/11/21 07/17/22 Rx loperamide 2 mg capsule 2 mg PO Q6H PRN Diarrhea 11/30/21 07/17/22 History cyclosporine 0.05 % eye drops in a 1 drp OPB BID 01/17/22 07/17/22 History dropperette (Restasis) potassium chloride 10 mEq 10 meq PO DAILY 01/17/22 07/17/22 History tablet,extended release diphenoxylate-atropine 2.5 2 tab PO TID #180 tabs 01/19/22 07/17/22 Rx mg-0.025 mg tablet balsalazide 750 mg capsule 2,250 mg PO TID 90 days #810 caps 03/13/22 07/17/22 Rx dicyclomine 10 mg capsule 10 mg PO QID PRN abdominal 05/17/22 07/17/22 Rx discomfort #60 caps aspirin 81 mg chewable tablet 81 mg PO DAILY 07/17/22 07/17/22 History carboxymethylcellulose sodium 0.5 1 drp ophthalmic (eye) TID 07/17/22 07/17/22 History % eye drops (Refresh Tears) gabapentin 300 mg capsule 300 mg PO TID pain 07/17/22 07/17/22 History levothyroxine 25 mcg tablet 25 mcg PO DAILYBB 07/17/22 07/17/22 History ondansetron HCl 4 mg tablet 8 mg PO Q8 PRN Nausea 07/17/22 07/17/22 History oxycodone 5 mg tablet 5 mg PO Q6H PRN Pain 07/17/22 07/17/22 History polyethylene glycol 3350 17 gram 8.5 g PO QAM 07/17/22 07/17/22 History oral powder packet (Miralax) prednisolone acetate 1 % eye 0 drp ophthalmic (eye) DIRECTED 07/17/22 07/17/22 History drops,suspension prochlorperazine maleate 10 mg 10 mg PO Q6 PRN Nausea 07/17/22 07/17/22 History tablet Patient History Medical History COVID-19 Pancreatic cancer Ulcerative colitis Surgical History H/O bilateral cataract extraction H/O: hysterectomy 1990 Family History Mother Brain tumor Father Metastatic cancer Sister Ovarian cancer Denies family history of Prostate cancer Breast cancer Lung cancer Colorectal cancer Social History Smoking Status: Never smoker Second Hand Exposure: No; Hx Alcohol Use: No Hx Substance Use: No Preferred Language: Greek Communication Ability: Effective Visual Impairment: Limited Hearing Ability: Normal Auto Servicer Required: No Beliefs That Will Affect Care: None marital status: / Current Living Situation: [place] Current Living Situation Comment: lives in [place] current occupational status: retired Other Information That Helps Us Care for You: No Feels Safe at Home: Yes Safety Concerns: Feels Safe At This Time Childhood Exposure to Second-Hand Smoke: Yes caffeine: Yes Dental Care, Regularly: Yes Physical Activity Frequency: Does not Exercise Seatbelt Use: always Sunscreen Use: Yes Assistive Devices: Glasses Review of Systems Review of Systems: ESAS Pain 2/3 Dyspnea 0/3 Fatigue 1/3 Nausea 0/3 Drowsiness 0/3 Physical Exam Constitutional: no acute distress ENMT: Mouth: oral mucous membranes not dry Respiratory: normal respiratory effort; no labored breathing Cardiovascular: Rate/Rhythm: regular rate and regular rhythm Gastrointestinal (Abdomen): distended, tender to palpation Skin: warm and dry Neurologic: Speech / Cognition: normal cognition Results & Data ([facility]) Vital Signs (Past 12 Hours) Vital Signs Temp Pulse Pulse Resp BP BP Pulse Ox 07/17/22 12:30 74 15 93 07/17/22 12:30 143/63 H 07/17/22 12:00 70 14 94 07/17/22 12:00 154/53 H 07/17/22 11:30 69 14 94 07/17/22 11:30 139/51 L 07/17/22 11:00 72 15 92 07/17/22 11:00 171/57 H 07/17/22 10:42 74 16 161/78 H 93 07/17/22 09:20 76 18 164/79 H 95 07/17/22 08:00 77 18 144/62 H 91 07/17/22 06:12 94 07/17/22 06:12 98.4 F 85 18 167/96 H 94 O2 Del Method 07/17/22 12:30 Room Air 07/17/22 12:30 07/17/22 12:00 Room Air 07/17/22 12:00 07/17/22 11:30 Room Air 07/17/22 11:30 07/17/22 11:00 Room Air 07/17/22 11:00 07/17/22 10:42 Room Air 07/17/22 09:20 Room Air 07/17/22 08:00 Room Air 07/17/22 06:12 Room Air 07/17/22 06:12 Room Air PG Care Time/CCT Total # of Minutes Spent Total Time Spent: 64 Total Time Spent with Patient: Total time spent is greater than 50% in coordination of care (as documented) at patient's floor/unit and/or counseling patient: [id number] goals of care, symptom management, hospice, patient education and support Coding Level of Care Code 18520 INT INP/OBS CARE 2/55MIN Diagnoses Abdominal pain R10.9 Chronic constipation K59.09 Palliative care encounter Z51.5
[2022-07-17] MEDS: oxyCODONE HCL IR 5 MG TAB (IMMEDIATE RELEASE) PO PRN (22:40)
[2022-07-18] MEDS ORDERED: LEVOTHYROXINE SODIUM 25 MCG TABLET PO SCH (06:30)
[2022-07-18] MEDS: oxyCODONE HCL IR 5 MG TAB (IMMEDIATE RELEASE) PO PRN (07:52)
[2022-07-18] MEDS: GABAPENTIN 300 MG CAP PO SCH (07:54)
[2022-07-18] MEDS: ENOXAPARIN INJ 40 MG/0.4 ML SYR SQ SCH (07:59)
[2022-07-18] MEDS ORDERED: CYANOCOBALAMIN (B-12) 500 MCG TABLET PO SCH (09:00)
[2022-07-18] MEDS ORDERED: OLMESARTAN MEDOXOMIL 20 MG TAB PO SCH (09:00)
[2022-07-18] MEDS ORDERED: MIRABEGRON ER 25 MG TAB PO SCH (09:00)
[2022-07-18] MEDS ORDERED: ASCORBIC ACID 500 MG TAB PO SCH (09:00)
[2022-07-18] MEDS ORDERED: predniSONE 10 MG TABLET PO SCH (09:00)
[2022-07-18] MEDS ORDERED: MULTIVITAMIN TAB PO SCH (09:00)
[2022-07-18] MEDS ORDERED: PANTOprazole 40 MG TAB PO SCH (09:00)
[2022-07-18] MEDS ORDERED: POTASSIUM CHLORIDE 10 MEQ TABCR PO SCH (09:00)
[2022-07-18] MEDS ORDERED: ASPIRIN 81 MG ECTAB PO SCH (09:00)
[2022-07-18] MEDS ORDERED: PSYLLIUM or GUAR GUM FIBER POWDER PACKET PO SCH (09:00)
[2022-07-18] MEDS: POLYETHYLENE (MIRALAX) 17 GM PACK PO SCH (09:51)
--- NOTE | 2022-07-18 14:01 | Discharge Summary ---
Date of Service July 18, 2022 Admission HPI Per Admitting Provider Shahbaz Segura is an 82-year-old female with a past medical history significant for metastatic pancreatic cancer, ulcerative colitis, hypertension, and dyslipidemia who is presenting today with 1 day of worsening abdominal pain. She has retroperitoneal and hepatic metastatic disease and was recently prescribed oxycodone IR 5 mg q6h prn on 07/04 by her oncologist for pain. She started taking this with some alleviation of pain, however became constipated therefore stopped it. For the past day she has had diffuse abdominal pain and cannot seem to get comfortable. No fever/chills, nausea, vomiting, melena, hematochezia, or diarrhea. Last BM 2-3 days ago. On presentation, she is hypertensive 167/96, otherwise vital signs are all within normal limits. Labs are largely unremarkable, her AST is elevated at 80 and alk phos 260, both mildly elevated from previous. She is without leukocytosis, anemia at baseline, no electrolyte abnormalities, renal function at baseline. Lipase 8. UA without evidence of infection. COVID-negative. CT A/P shows interval enlargement of the primary pancreatic mass with hepatic and peritoneal metastases. No other acute findings. The gallbladder is developed a mildly bilobed appearance without evidence of significant narrowing of the lumen, no intra or hyper extrahepatic bile or ductal dilation. Principal Diagnosis abdominal pain, constipation Discharge Exam The patient is awake, alert and oriented 3, well developed and well nourished, normocephalic and atraumatic, lying in bed and in no acute distress. HEENT--PERRL, EOMI, mucous membranes and oropharynx mildly dry Neck--supple. No JVD. No bruits. Thyroid normal, trachea midline, no adenopathy. Heart--normal S1 and S2. No murmurs, rubs or gallops. Lungs--clear bilaterally, no respiratory distress, no accessory muscle use. Abdomen--normal bowel sounds and soft. Mild epigastric and left sided abdominal pain Extremities--no cyanosis or clubbing. No edema. Dermatologic--normal skin turgor, normal color, no abnormal lymph nodes, no rash. Neurologic--cranial nerves II through XII grossly intact. Rheumatologic--normal range of motion. Psychiatric--normal affect. Discharge Data Allergies Allergy/AdvReac Type Severity Reaction Status Date / Time Penicillins Allergy Intermediate swelling Verified 07/17/22 13:38 Consultations 07/17/22 09:15 ED Decision to Admit Stat 07/17/22 12:45 Consult Palliative Care Routine Ordered Studies 07/17/22 06:35 CT abd pelvis IV con only Stat Hospital Course (1) Pancreatic cancer: - Recently diagnosed November 2020, previously followed with oncology in [facility], recently moved to [place] to be with son and established with [facility] in April 2021. - Cycle #10 of FOLFIRNOX this fall. - Recently prescribed oxycodone IR 5 mg Q6h prn on 06/24 for worsening pain--had initially been taking but had to stop due to constipation. - CT A/P: interval enlargement of the primary pancreatic mass with hepatic and peritoneal metastases. No other acute findings. 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 - MiraLax TID. Additional agents as needed. - palliative discussed with patient and she wanted to discuss hospice at a later time - Patient recently went to [facility] for second opinion regarding treatment for her metastatic pancreatic cancer, oncologist there suggested immunotherapy, family believes it will likely have to be done out of the area andthey are unsure if would be able to be facilitated, however they are still interested in discussing this option with Dr. Mejia to see if treatment can be done locally. (2) Change in bowel habits: - On several medications for diarrhea, with worsening constipation since sta rting oxycodone for cancer related pain. - Discharge on Miralax BID scheduled; hold Imodium, Lomotil. (3) Hypertension: - Continue olmesartan or formulary equivalent. (4) Hyperlipidemia: - Hold statin for now for elevated AST and risk > benefit/reduce pill burden given her metastatic pancreatic cancer. (5) Inflammatory bowel disease: - Continue balsalazide TID; hold anti-diarrheals. Plan - d/c home - SCDs, Lovenox for VTE ppx. - DNR/DNI. Total Time Total Time Spent Total Time Spent (In Minutes): 35 Discharge Plan Discharge Items Patient Disposition: Home - Self-Care Reason For Visit: PANCREATIC CANCER/PAIN CONTROL Discharge Diagnosis: constipation, bloating, pain Activity: Resume your previous activity Non-emergency contact: Primary Care Provider and Oncologist Call non-emergency contact if: you have any medication questions and your symptoms worsen Follow-up/Referrals: Alfredo Hernandez DO [Primary Care Provider] - 07/23/22 3:00 pm Diet: Regular Addtl Attending Provider Instructions: please make appointment to follow up with your regular doctors Pending Studies at Discharge: No Stand-Alone Forms: My Rundown, Smoking Cessation Medications and DC Order Prescriptions: Continued balsalazide 750 mg capsule 2,250 mg PO TID 90 Days Qty: 810 3RF dicyclomine 10 mg capsule 10 mg PO QID PRN (Reason: abdominal discomfort) Qty: 60 2RF ascorbic acid (vitamin C) 500 mg capsule 500 mg PO DAILY Qty: 7 0RF melatonin 10 mg capsule 10 mg PO HS PRN (Reason: sleep) Qty: 1 0RF olmesartan 20 mg tablet 20 mg PO DAILY Qty: 30 2RF rosuvastatin 10 mg tablet 10 mg PO DAILY Qty: 30 2RF cyanocobalamin (vitamin B-12) 1,000 mcg capsule 1,000 mcg PO DAILY Qty: 30 0RF cyclosporine [Restasis] 0.05 % dropperette 1 drp OPB BID potassium chloride 10 mEq tablet extended release 10 meq PO DAILY levothyroxine 25 mcg tablet 25 mcg PO DAILYBB gabapentin 300 mg capsule 300 mg PO TID oxycodone 5 mg tablet 5 mg PO Q6H PRN (Reason: Pain) ondansetron HCl 4 mg Tablet 8 mg PO Q8 PRN (Reason: Nausea) prochlorperazine maleate 10 mg tablet 10 mg PO Q6 PRN (Reason: Nausea) prednisolone acetate 1 % drops,suspension 0 drp ophthalmic (eye) DIRECTED carboxymethylcellulose sodium [Refresh Tears] 0.5 % Drops 1 drp OPHTHALMIC (EYE) TID aspirin 81 mg Tablet,Chewable 81 mg PO DAILY Changed polyethylene glycol 3350 [Miralax] 17 gram Powder In Packet 8.5 g PO BID PRN (Reason: Constipation) Qty: 24 0RF Rx Instructions: mix with 8 oz of water and drink in am with amitiza. Discontinued loperamide 2 mg capsule 2 mg PO Q6H PRN (Reason: Diarrhea) diphenoxylate-atropine 2.5-0.025 mg tablet 2 tab PO TID Qty: 180 0RF Discharge Orders: Discharge Order (Routine); Ordered 07/18/22 Ordered By: Portillo Espino Admission Data Admit Date/Time: 07/17/22 10:15 Attending Provider: Portillo Espino Admit Provider: Piter Rhodes Primary Care Provider: Alfredo Hernandez Other Providers: Piter Rhodes ; Zulema Adams Other Interventions: Discharge Summary Assessment (RN) Last Done: 07/18/22 12:12 Coding Level of Care Code INP/OBS EV SAME DAY LV 2,70MIN Diagnoses Pancreatic cancer C25.9 Change in bowel habits R19.4 Hypertension I10 Hyperlipidemia E78.5 Inflammatory bowel disease K52.9 Time Spent (min) 35
== END 2022-07-18 13:15 | disposition home or self-care (01) ==
LOC: ED 06:00 → EDINP 06:00 → SUATTDRO 10:15 → 3W 12:43
DX: Z51.5 Encounter for palliative care; Z79.899 Other long term (current) drug therapy; C25.9 Malignant neoplasm of pancreas, unspecified; C78.6 Secondary malignant neoplasm of retroperitoneum and peritoneum; R10.9 Unspecified abdominal pain; Z79.82 Long term (current) use of aspirin; K59.09 Other constipation; C78.7 Secondary malignant neoplasm of liver and intrahepatic bile duct; I10 Essential (primary) hypertension; Z88.0 Allergy status to penicillin